=== PATIENT | female | born 1980 | race American Indian/Alaskan Native ===

== ENCOUNTER 2017-03-27 14:56 | Outpatient (CLI) | payer BC, OTHER | END 2017-03-27 14:57 | disposition home or self-care (01) | LOC: LABHHL 14:56 | PROVIDERS: ATTEND Surgery | DX: C50.911 Malignant neoplasm of unspecified site of right female breast (principal) | CPT/HCPCS: 88305; 88361 ==

== ENCOUNTER 2017-04-03 15:12 | Outpatient (CLI) | payer OTHER | END 2017-04-03 15:13 | disposition home or self-care (01) | LOC: LABHHL 15:12 | PROVIDERS: ATTEND Surgery | DX: D05.11 Intraductal carcinoma in situ of right breast (principal) | CPT/HCPCS: 88305; 88341; 88342; 88361 ==

== ENCOUNTER 2017-04-10 14:08 | Outpatient (CLI) | payer BC ==
--- NOTE | 2017-04-16 10:43 | Magnetic Resonance Report ---
BILATERAL BREAST MRI WITHOUT AND WITH CONTRAST: 04/10/17 14:08:00 CLINICAL: Newly diagnosed right breast cancer. 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 A right axillary lymph node biopsy on the same day was negative with no lymphoid tissue identified.. COMPARISON:03/12/17 mammogram from [facility]. TECHNIQUE: Axial 1.0-mm T1 without, axial high resolution 2.0-mm T2 and axial 1.0-mm dynamic Vibrant high-resolution postcontrast T1 fat saturation sequences on a 1.5 Zahida magnet. The examination was performed with an 8 channel dedicated Sentinelle breast coil. Post processing with CAD and subtraction was performed on an [email or web address] workstation. 20 cc of Multihance was injected without incident for the contrast portion of the exam. Consent was obtained prior to the administration of the contrast. FINDINGS: Right: Mild background parenchymal enhancement. The known cancer is an irregular enhancing mass at 12 o'clock 13.3 cm from the nipple and 2.6 cm from the chest wall. It measures 2.8 x 1.9 x 1.7 cm and demonstrates heterogeneous enhancement with mixed kinetics, 205% peak enhancement and 33% type III washout. A second suspicious mass is identified at 11 o'clock 7.8 cm from the nipple and 9.2 cm from the chest wall. It measures 8.9 x 5.6 x 5.0 mm, is oval and smooth and demonstrates heterogeneous enhancement with mixed kinetics, 172% peak enhancement and 43% type III washout. This mass is approximately 2.2 cm cephalad to the stereotactic biopsy clip and is approximately 4 mm lateral to the biopsy clip. The clip is at the inferior aspect of the biopsy cavity and is approximately 2 cm discordant with the original calcifications on the mammogram. No other mass or suspicious enhancement of the right breast. No suspicious right axillary or right internal mammary lymph nodes. Left: Mild background parenchymal enhancement. An oval smooth enhancing mass or lymph node in the upper inner quadrant 9 cm from the nipple measures 1.7 x 1.2 x 1.0 cm. It demonstrates heterogeneous enhancement with mixed kinetics, 111% peak enhancement and 5% type III washout. This is probably a lymph node with mildly hyperintense central fat on T2. However, it is not identified on the recent mammogram. No other mass or suspicious enhancement of the left breast. No suspicious left axillary or left internal mammary lymph nodes. IMPRESSION: 1. A 2.0 cm known right breast cancer. 2. A second 8.9 mm suspicious mass of the right breast is approximately 2 cm cephalad to the discordant stereotactic biopsy clip and this mass is near the original calcifications which were targeted at stereotactic biopsy. 3. A probably benign left upper inner lymph node. A targeted ultrasound of the upper left breast may be conclusive improving and this is a benign lymph node. RIGHT BI-RADS 6 -- Known Cancer LEFT BI-RADS 3 -- Probably Benign
== END 2017-04-10 14:09 | disposition home or self-care (01) ==
LOC: SPVIMAG 14:08
PROVIDERS: ATTEND Surgery
DX: C50.211 Malignant neoplasm of upper-inner quadrant of right female breast (principal)
CPT/HCPCS: 0159T; A9577; C8908; 77059

== ENCOUNTER 2017-05-06 11:06 | Outpatient (CLI) | payer BC ==
--- NOTE | 2017-05-06 12:48 | Ultrasound Report ---
LEFT BREAST ULTRASOUND: 05/06/17 11:06:00 CLINICAL: Known right breast cancer and a questionable lesion of the upper inner left breast on MRI. COMPARISON: 04/10/17 MRI FINDINGS: Ultrasound of the upper inner left breast was performed and demonstrated no lymph node or mass to correlate with MRI finding. I scanned the patient myself and initially thought that I had found a mass at 10 o'clock 7 cm from the nipple measuring approximately 1.2 x 0.9 x 0.5 cm. However, with further scanning it appeared indistinguishable from benign lobular fat. IMPRESSION: Negative left breast ultrasound. BI-RADS 6--Known Cancer RECOMMENDATION: I would normally recommend an MRI guided biopsy for the MRI finding. However, the patient has decided to have a bilateral mastectomy and therefore no biopsy of the left breast is recommended.
== END 2017-05-06 11:07 | disposition home or self-care (01) ==
LOC: SPVWC 11:06
PROVIDERS: ATTEND Surgery
DX: C50.211 Malignant neoplasm of upper-inner quadrant of right female breast (principal)

== ENCOUNTER 2017-08-21 08:44 | Inpatient (IN) | payer BC ==
--- NOTE | 2017-08-15 13:55 | Anesthesia Consultation ---
Anesthesia Consult and Med Hx Date of service: 08/15/17 - Airway Anesthetic Teeth Evaluation: Good ROM Head & Neck: Adequate Mental/Hyoid Distance: Adequate Mallampati Class: Class II Intubation Access Assessment: Probably Good - Pulmonary Exam CTA: Yes - Cardiac Exam Cardiac Exam: RRR - Pre-Operative Health Status ASA Pre-Surgery Classification: ASA2 Proposed Anesthetic Plan: General, Epidural - Cardiovascular System Hx Hypertension: No - Central Nervous System Hx Psychiatric Problems: No - Hematic Hx Anemia: Yes - Other Systems Hx Alcohol Use: Yes (occas) Hx Substance Use: No Hx Cancer: Yes (breast) - Additional Comments Anesthesia Medical History Comments: Patient getting bilateral mastectomy with TRAM flap, umbilical hernia repair. Discussed with patient thoracic epidural for post op pain managment.
[~2017-08-21 08:44] MED LIST: NACL 0.9% 1000 ML 1,000 ML IV SCH; NEURONTIN PO NR; PEPCID PO NR; TRANSDERM-SCOP TD NR; VERSED IV NR
[2017-08-21] MEDS ORDERED: MARCAINE 0.25% INFILTRATI ONE (10:07)
[2017-08-21] MEDS ORDERED: XYLOCAINE 1% 20 mL ONE (10:07)
[2017-08-21] MEDS ORDERED: ANCEF ONE ×2 (10:08→14:49)
[2017-08-21] MEDS ORDERED: MARCAINE 0.5% 30 ML INFILTRATI ONE (10:09)
[2017-08-21] MEDS ORDERED: BACITRACIN ONE (10:09)
[2017-08-21] MEDS ORDERED: NACL P/F VIAL (10 ML) 10 ML ONE ×2 (10:10→11:26)
[2017-08-21] MEDS ORDERED: XYLOCAINE MPF 2% ONE ×3 (10:17→14:46)
[2017-08-21] MEDS ORDERED: ZEMURON IV ONE ×2 (10:17→17:01)
[2017-08-21] MEDS ORDERED: DIPRIVAN 10 MG/ML IV ONE (10:18)
[2017-08-21] MEDS ORDERED: DILAUDID ONE (10:18)
[2017-08-21 10:19] LABS: BUN/Creatinine Ratio 25; Blood Urea Nitrogen 15 mg/dL (7-17); Calcium 8.8 mg/dL (8.4-10.2); Hemolysis Index 20
--- NOTE | 2017-08-21 10:39 | Anesthesia Day of Surgery ---
Anesthesia Day of Surgery - Day of Surgery Patient Examined: Yes Patient is NPO: Yes
[2017-08-21] MEDS ORDERED: NARCAN 0.4 MG/1 ML IV PRN (10:40)
[2017-08-21] MEDS ORDERED: SODIUM CHLORIDE FLUSH SYRINGE 10 ML IV PRN (10:40)
[2017-08-21] MEDS ORDERED: ANCEF/STERILE WATER 2 GM/20 ML IV NR (11:00)
[2017-08-21] MEDS ORDERED: NEO SYNEPHRINE/NS Syringe(OR USE) IV ONE ×2 (11:15→11:49)
[2017-08-21] MEDS ORDERED: NACL 0.9% 1000 ML 1,000 ML ONE ×2 (11:16→15:03)
[2017-08-21] MEDS ORDERED: METHYLENE BLUE ONE (11:26)
--- NOTE | 2017-08-21 14:19 | Operative Report ---
Operative Report Operative Report: Date of Service: August 21, 2017 Preoperative diagnosis: Right breast cancer of the upper outer quadrant Postoperative diagnosis: Same Procedure: Left total mastectomy and right total mastectomy with sentinel lymph node biopsy Surgeon: Ruthann Diehl M.D. Asst.: Katerine Corona MD Anesthesia: Gen. Findings: Two right breast clips present within right total mastectomy radiograph specimen. 5 sentinel lymph nodes identified and negative for malignancy on frozen section of pathology Complications: None Drains: per PRS Estimated blood loss: Minimal Disposition: OR for TRAM flap by Dr. Wilson Indications for operative procedure: This is a 37-year-old lady with multicentric stage I right breast cancer of the upper outer quadrant. She completed neoadjuvant chemotherapy. Recommendations were to proceed with right breast mastectomy given multicentric right breast cancer and she wished to proceed with a prophylactic left total masectomy with immediate TRAM flap reconstruction. Procedure in detail: Anesthesia placed a bilateral pectoral muscle block prior to going to the operating room. The patient was taken to the operating room and was placed supine. Gen. anesthesia was administered. The right nipple was injected with radioisotope and 1 cc of methylene blue dye with 1 cc of saline. Bilateral breast were prepped and draped in the normal sterile operative fashion. Timeout was performed. Typical mastectomy incision markings were made. Attention was taken towards the left breast first. A skin incision was made with a 10 blade knife and dissection taken down to the subcutaneous tissues. First began raising of the superior flap to the level of the clavicle superiorly and posteriorly to the pectoralis muscle. Followed by raising of the medial flap to the level of the sternum and posteriorly to the pectoralis muscle. Followed by raising of the lateral flap to the level of the latissimus dorsi muscle and taken down posteriorly. Followed by raising of the inferior flap to the level of the inframammary fold taken posterior to the pectoralis muscle. The mastectomy/breast was removed from the pectoralis muscle without incident. The specimen was appropriately marked and sent to pathology. Hemostasis was obtained with the bovie cautery. Attention was taken towards the right breast. A gamma probe was inserted into the axilla to identify the sentinel lymph node location. A skin incision was made with a 10 blade knife and dissection taken down to the subcutaneous tissues. First began raising of the superior flap to the level of the clavicle superiorly and posteriorly to the pectoralis muscle. Followed by raising of the medial flap to the level of the sternum and posteriorly to the pectoralis muscle. Followed by raising of the lateral flap to the level of the latissimus dorsi muscle and taken down posteriorly. The gamma probe was inserted into the axilla and 5 sentinel lymph nodes were identified, all remaining counts were less than 10% of the highest SLN. Lymph nodes were sent to pathology with findings negative for malignancy noted on frozen section. Then proceeded with raising of the inferior flap to the level of the inframammary fold taken posterior to the pectoralis muscle. The mastectomy/breast was removed from the pectoralis muscle without incident. The specimen was appropriately marked and sent to radiology with findings of 2 breast clips present and sent to pathology. Hemostasis was obtained with the bovie cautery. Dr. Wilson then proceeded with bilateral TRAM.
--- NOTE | 2017-08-21 14:41 | Mammography Report ---
SPECIMEN RADIOGRAPH RIGHT BREAST: 08/21/17 08:44:00 CLINICAL: Mastectomy specimen. FINDINGS: 2 biopsy clips are identified within the specimen. For more detail, please refer to the operative report.
[2017-08-21] MEDS ORDERED: ZOFRAN ONE ×2 (14:56→18:19)
[2017-08-21] MEDS ORDERED: LACTATED RINGERS 1,000 ML ONE (17:01)
[2017-08-21] MEDS ORDERED: NEOSTIGMINE ONE (18:26)
[2017-08-21] MEDS ORDERED: ROBINUL ONE (18:26)
[2017-08-21] MEDS ORDERED: ePHEDrine SULFATE ONE (19:26)
[2017-08-21] MEDS: MORPHINE IV PRN ×3 (19:59→20:59)
--- NOTE | 2017-08-21 20:27 | Post Anesthesia Evaluation ---
- Post Anesthesia Evaluation Patient Participated: Yes Airway Patent: Yes Stable Respiratory Function: Yes Temp > 96.8F: Yes Pain Manageable: Yes Adequeate Hydration: Yes Other Comments: See progress note
--- NOTE | 2017-08-21 20:34 | Progress Note ---
Subjective Date of service: 08/21/17 Interval history: Patient underwent a very lengthy bilateral mastectomy with tram flap reconstruction. On arrival in PACU she had minemal pain at the surgical site but was complaining of right elbow pain. Upon examination, no ecchymosis, swelling or numbness was noted. The patient was able to flex and extend the left arm at the elbow but said it was very painful to do so. Home Based Assistant strength was essentially the same bilaterally. Will observe patient overnight and re- evaluate in am. Objective - Constitutional Vitals: Vital Signs - 12hr 08/21/17 08/21/17 08/21/17 09:30 09:49 09:53 Temperature 98.5 F Pulse Rate 101 H 112 H Respiratory 14 15 14 Rate Blood Pressure 120/65 115/55 O2 Sat by Pulse 100 100 Oximetry 08/21/17 08/21/17 08/21/17 09:58 10:00 10:03 Temperature 98.5 F Pulse Rate 109 H 98 H 100 H Respiratory 14 14 14 Rate Blood Pressure 112/55 116/67 113/51 O2 Sat by Pulse 100 100 100 Oximetry 08/21/17 08/21/17 08/21/17 10:07 10:12 10:18 Temperature Pulse Rate 108 H 108 H 112 H Respiratory 17 16 17 Rate Blood Pressure 116/51 121/59 116/47 O2 Sat by Pulse 100 100 100 Oximetry 08/21/17 08/21/17 19:59 20:15 Temperature Pulse Rate Respiratory 12 14 Rate Blood Pressure O2 Sat by Pulse Oximetry - Labs CBC & Chem 7: 08/21/17 09:30 Labs: Abnormal lab results 08/21/17 Range/Units 09:30 Creatinine 0.6 L (0.7-1.2) mg/dL
[2017-08-21] MEDS: fentaNYL-BUPIV 2 MCG/ML-0.125% 200 MCG/100 ML BAG EPIDURAL SCH (20:35)
--- NOTE | 2017-08-21 22:58 | Operative Report ---
PREOPERATIVE DIAGNOSES: 1. Breast cancer. 2. Status post bilateral mastectomies. 3. Acquired absence of breast. POSTOPERATIVE DIAGNOSES: 1. Breast cancer. 2. Status post bilateral mastectomies. 3. Acquired absence of breast. 4. Umbilical hernia. PROCEDURES: 1. Bilateral TRAM flap breast reconstruction. 2. Embolectomy. 3. Umbilical hernia repair. SURGEON: Connor Wilson MD SIDE SHOW ENTERTAINER: Alex Hall CSA. FINDINGS: The patient had an umbilical hernia. DESCRIPTION OF PROCEDURE: The patient was brought to the operating room and placed on the table in supine position. Following administration of general anesthesia, bilateral breasts and abdomen were prepped with Betadine solution and draped in the usual sterile manner. Following bilateral mastectomies by Dr. Diehl, attention was directed towards the abdomen for bilateral breast reconstruction. A transverse skin incision was made couple of fingerbreadths above the umbilicus from anterior axillary line to the anterior axillary line with the subcutaneous plane elevation of the abdominal skin flap up to the costal margins and xiphoid process superiorly. A tunnel was created using the electrocautery to communicate with bilateral mastectomy defects. After ensuring closure of the abdominal wall flap, a lower Pfannenstiel incision was performed, which adjoined the transverse skin incision. TRAM flaps bilaterally were elevated in standard manner preserving both medial and lateral rows of the perforators, each flap was dissected out of its rectus sheath, preserving a strip of fascia overlying the superior epigastric vessels, which were identified by Doppler. The inferior epigastric blood vessels were clipped twice distally and twice proximally prior to their division. Ipsilateral flaps were raised in standard manner and placed into the mastectomy defects. Portion of the flap to be buried were deepithelialized. Two 2 mm NOE drains were placed in each breast and skin closure performed with interrupted and running subcuticular 2-0 Monocryl sutures. The abdominal wall defect was closed with a bilateral running loop #1 PDS horizontal mattress sutures oversewn with a #1 Prolene sutures. During the dissection, it was identified that the patient had an umbilical hernia and due to devascularization, it typically occurs with performing bilateral TRAM flaps and then nail with repairing the umbilical hernia, it was felt that the umbilicus could be crossed so, it was removed. The umbilical hernia was closed with a [id number] #1 Prolene suture. Three 10 mm NOE drains were placed. New site was made for the umbilicus with the de-fatting at the area of skin, which was tacked down to the fascia with a #1 Prolene suture. The patient tolerated the procedure well and returned to recovery room in stable condition. The flaps were warm, pink, and had three-second capillary refill. JOB# [id number] FTW/NTS
[2017-08-22] MEDS: CLEOCIN 600 MG/50 mL 600 MG/50 ML BAG IV SCH ×4 (00:24→21:33)
[2017-08-22] MEDS: D5LR 1,000 ML IV SCH ×3 (04:15→21:24)
[2017-08-22 06:17] LABS: Hemoglobin 8.1 gm/dl (10.1-14.3); Mean Corpuscular HGB Conc 33 % (30-34); Mean Corpuscular Hemoglobin 30 pg (28-32); Mean Corpuscular Volume 92 fl (79-97); Platelet Count 260 K/mm3 (140-440); Red Blood Count 2.71 M/mm3 (3.65-5.03)
[2017-08-22 06:20] LABS: Red Cell Distribution Width 26.7 % (13.2-15.2)
[2017-08-22 06:36] LABS: BUN/Creatinine Ratio 19; Blood Urea Nitrogen 15 mg/dL (7-17); Calcium 7.8 mg/dL (8.4-10.2); Hemolysis Index 118
[2017-08-22 07:17] LABS: Basophils % (Manual) 0 % (0.0-1.8); Eosinophils % (Manual) 0 % (0.0-4.3); Total Cells Counted 100
[2017-08-22 07:18] LABS: Anisocytosis 3+; Dimorphic RBC Yes; Hypochromasia 1+; Platelet Estimate Consistent w Auto; Schistocytes Rare
--- NOTE | 2017-08-22 09:23 | Progress Note ---
Assessment and Plan This is a 37 year old lady with multicentric right breast cancer of the upper outer quadrant, POD #1 bilateral mastectomy and right SLNB and TRAM flap. 1. No acute events overnight. 2. Pain in good control. 3. Bilateral chest TRAM flaps with skin well perfused. 4. OOB to hallway. 5. CLD. Subjective Date of service: 08/22/17 Principal diagnosis: Multicentric right breast cancer of the upper outer quadrant Interval history: POD#1 bilateral mastectomy and right SLNB and immediate TRAM flap Objective - Constitutional Vitals: Vital Signs - 12hr 08/21/17 08/21/17 08/21/17 21:29 21:30 22:00 Temperature 97.6 F 97.9 F Pulse Rate 91 H 110 H Respiratory 16 17 14 Rate Blood Pressure 122/68 114/51 Blood Pressure 114/51 [Left] O2 Sat by Pulse 100 100 Oximetry 08/22/17 08/22/17 00:20 04:00 Temperature 99.3 F 99.8 F H Pulse Rate 120 H 119 H Respiratory 18 18 Rate Blood Pressure Blood Pressure 107/47 92/41 [Left] O2 Sat by Pulse 120 H 97 Oximetry General appearance: Present: no acute distress - EENT Eyes: PERRL, EOM intact ENT: hearing intact, clear oral mucosa, dentition normal Ears: bilateral: normal - Neck Neck: supple, normal ROM - Respiratory Respiratory effort: normal Respiratory: bilateral: CTA - Breasts Breasts: other - Cardiovascular Rhythm: regular Heart Sounds: Present: S1 & S2 Extremities: no ischemia, pulses intact, pulses symmetrical, No edema, normal temperature, normal color, Full ROM - Gastrointestinal General gastrointestinal: Present: soft, other (bandages intact, appropriate tenderness) - Genitourinary Female genitourinary: other (richards in place) - Integumentary Integumentary: clear, warm, dry - Musculoskeletal Musculoskeletal: strength equal bilaterally - Neurologic Neurologic: CNII-XII intact - Psychiatric Psychiatric: appropriate mood/affect, intact judgment & insight, memory intact, cooperative - Labs CBC & Chem 7: 08/22/17 05:54 08/22/17 05:54 Labs: Abnormal lab results 08/21/17 08/22/17 08/22/17 Range/Units 09:30 05:54 05:54 WBC 11.3 H (4.5-11.0) K/mm3 RBC 2.71 L (3.65-5.03) M/mm3 Hgb 8.1 L (10.1-14.3) gm/dl Hct 25.0 L (30.3-42.9) % RDW 26.7 H (13.2-15.2) % Seg Neuts % (Manual) 80.0 H (40.0-70.0) % Lymphocytes % (Manual) 10.0 L (13.4-35.0) % Monocytes % (Manual) 10.0 H (0.0-7.3) % Seg Neutrophils # Man 9.0 H (1.8-7.7) K/mm3 Lymphocytes # (Manual) 1.1 L (1.2-5.4) K/mm3 Monocytes # (Manual) 1.1 H (0.0-0.8) K/mm3 Creatinine 0.6 L (0.7-1.2) mg/dL Glucose 131 H (65-100) mg/dL Calcium 7.8 L (8.4-10.2) mg/dL
[2017-08-22] MEDS: fentaNYL-BUPIV 2 MCG/ML-0.125% 200 MCG/100 ML BAG EPIDURAL SCH (11:52)
--- NOTE | 2017-08-22 13:39 | Progress Note ---
Subjective Date of service: 08/22/17 Principal diagnosis: Multicentric right breast cancer of the upper outer quadrant Interval history: Patient is awake and alert. She rates her pain as 5/10. Still with some R elbow pain but much improved from yesterday. Objective - Constitutional Vitals: Vital Signs - 12hr 08/22/17 08/22/17 08/22/17 04:00 08:00 08:43 Temperature 99.8 F H 102.1 F H Pulse Rate 119 H 114 H Respiratory 18 20 20 Rate Blood Pressure 92/41 89/34 [Left] O2 Sat by Pulse 97 Oximetry - Labs CBC & Chem 7: 08/22/17 05:54 08/22/17 05:54 Labs: Abnormal lab results 08/22/17 08/22/17 Range/Units 05:54 05:54 WBC 11.3 H (4.5-11.0) K/mm3 RBC 2.71 L (3.65-5.03) M/mm3 Hgb 8.1 L (10.1-14.3) gm/dl Hct 25.0 L (30.3-42.9) % RDW 26.7 H (13.2-15.2) % Seg Neuts % (Manual) 80.0 H (40.0-70.0) % Lymphocytes % (Manual) 10.0 L (13.4-35.0) % Monocytes % (Manual) 10.0 H (0.0-7.3) % Seg Neutrophils # Man 9.0 H (1.8-7.7) K/mm3 Lymphocytes # (Manual) 1.1 L (1.2-5.4) K/mm3 Monocytes # (Manual) 1.1 H (0.0-0.8) K/mm3 Glucose 131 H (65-100) mg/dL Calcium 7.8 L (8.4-10.2) mg/dL
[2017-08-22] MEDS: MORPHINE IV PRN ×2 (14:30→20:28)
[2017-08-22] MEDS ORDERED: SUBLIMAZE IV ONE (19:00)
[2017-08-22 19:42] LABS: Hematocrit 24.3 % (30.3-42.9); Hemoglobin 8.1 gm/dl (10.1-14.3); Mean Corpuscular HGB Conc 33 % (30-34); Mean Corpuscular Hemoglobin 30 pg (28-32); Mean Corpuscular Volume 90 fl (79-97); Platelet Count 241 K/mm3 (140-440); Red Blood Count 2.71 M/mm3 (3.65-5.03)
[2017-08-22 19:44] LABS: Red Cell Distribution Width 25.7 % (13.2-15.2)
[2017-08-22 20:14] LABS: Basophils % (Manual) 0 % (0.0-1.8); Eosinophils % (Manual) 0 % (0.0-4.3); Total Cells Counted 100
[2017-08-22 20:15] LABS: Anisocytosis 2+
[2017-08-22 20:16] LABS: Schistocytes Rare; Tear Drop Cells Few
[2017-08-22] MEDS: PERCOCET 5/325 PO PRN (20:28)
[2017-08-22] MEDS ORDERED: NACL 0.9% 1000 ML 1,000 ML IV ONE (21:00)
[2017-08-22 21:23] LABS: BUN/Creatinine Ratio 20; Blood Urea Nitrogen 16 mg/dL (7-17); Calcium 7.8 mg/dL (8.4-10.2); Hemolysis Index 7
--- NOTE | 2017-08-22 23:10 | XRay Report ---
FINAL REPORT PROCEDURE: PA and lateral chest x-ray TECHNIQUE: PA and lateral chest radiographs were obtained. CPT 52302 HISTORY: post surgical tachycardia COMPARISON: No prior studies are available for comparison. FINDINGS: Surgical drains are seen overlying the right and left breast. Gxwjyf-S-Sgeg catheter seen implanted in the left side of the chest. Tip of the catheter projects near the junction of the superior vena cava and right atrium. No evidence of pneumothorax. No infiltrates masses or effusions are identified. Heart size upper normal. IMPRESSION: Heart size upper normal. Surgical drain seen overlying the right and left breast. Aoutbo-M-Duzc catheter in place. No acute abnormalities are identified..
[2017-08-23] MEDS: MORPHINE PCA 30MG/30ML IV SCH ×2 (00:32→11:11)
[2017-08-23] MEDS: D5LR 1,000 ML IV SCH ×2 (00:48→11:16)
[2017-08-23] MEDS: PERCOCET 5/325 PO PRN (03:18)
[2017-08-23] MEDS: CLEOCIN 600 MG/50 mL 600 MG/50 ML BAG IV SCH ×3 (03:21→19:52)
--- NOTE | 2017-08-23 06:41 | Progress Note ---
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 1. No acute events overnight. 2. Transfused 2 units of PRBCs yesterday with h/h 06/22. Improvement in tachycardia, EKG obtained today. Replaced Mg yesterday. 3. Consulted hospitalist given tachycardia will await further direction, Dr. Jordan will order thyroid panel and he reviewed EKG with fairly normal findings and he will talk to cardiology. Patient has recieved TCH/P neoadjuvant chemotherpy. 4. Pain in good control and PULLING UNIT FLOORHAND d/c 5. Bilateral chest TRAM flaps with skin well perfused. Adbomen slightly distended and patient will go light with regular diet. 6. OOB to hallway. SCDs. 7. Possible d/c planning for tomorrow. 8. NOE drain education Subjective Date of service: 08/24/17 Principal diagnosis: Multicentric right breast cancer of the upper outer quadrant Interval history: POD#3 bilateral mastectomy and right SLNB and immediate TRAM flap. Transfused 2 units of PRBCs yesterday, improvement in tachycardia. Objective - Constitutional Vitals: Vital Signs - 12hr 08/23/17 01:26 Temperature 100.1 F H Pulse Rate 119 H Respiratory 20 Rate Blood Pressure 99/44 O2 Sat by Pulse 93 Oximetry General appearance: Present: no acute distress - EENT Eyes: PERRL, EOM intact ENT: hearing intact, clear oral mucosa, dentition normal Ears: bilateral: normal - Neck Neck: supple, normal ROM - Respiratory Respiratory effort: normal Respiratory: bilateral: CTA - Breasts Breasts: other (bilateral TRAM flaps with skin well perfused; incision c/d/i) - Cardiovascular Rhythm: regular Extremities: no ischemia, pulses intact, pulses symmetrical, normal temperature , normal color Extremity abnormal: edema - Gastrointestinal General gastrointestinal: Present: soft, distended, other (incisions healing well-c/d/i; minimal tenderness) Rectal Exam: deferred - Genitourinary Female genitourinary: deferred - Integumentary Integumentary: clear, warm, dry - Musculoskeletal Musculoskeletal: strength equal bilaterally - Neurologic Neurologic: CNII-XII intact, moves all extremities - Psychiatric Psychiatric: appropriate mood/affect, intact judgment & insight, memory intact, cooperative - Labs CBC & Chem 7: 08/24/17 07:22 12/29/17 19:24 Labs: Abnormal lab results 08/22/17 08/22/17 08/22/17 Range/Units 05:54 19:24 19:24 WBC 13.8 H (4.5-11.0) K/mm3 RBC 2.71 L (3.65-5.03) M/mm3 Hgb 8.1 L (10.1-14.3) gm/dl Hct 24.3 L (30.3-42.9) % RDW 25.7 H (13.2-15.2) % Seg Neuts % (Manual) 80.0 H 84.0 H (40.0-70.0) % Lymphocytes % (Manual) 10.0 L 12.0 L (13.4-35.0) % Monocytes % (Manual) 10.0 H (0.0-7.3) % Seg Neutrophils # Man 9.0 H 11.6 H (1.8-7.7) K/mm3 Lymphocytes # (Manual) 1.1 L (1.2-5.4) K/mm3 Monocytes # (Manual) 1.1 H (0.0-0.8) K/mm3 Carbon Dioxide (22-30) mmol/L Glucose (65-100) mg/dL Calcium (8.4-10.2) mg/dL Magnesium 1.50 L (1.7-2.3) mg/dL 08/22/17 Range/Units 19:24 WBC (4.5-11.0) K/mm3 RBC (3.65-5.03) M/mm3 Hgb (10.1-14.3) gm/dl Hct (30.3-42.9) % RDW (13.2-15.2) % Seg Neuts % (Manual) (40.0-70.0) % Lymphocytes % (Manual) (13.4-35.0) % Monocytes % (Manual) (0.0-7.3) % Seg Neutrophils # Man (1.8-7.7) K/mm3 Lymphocytes # (Manual) (1.2-5.4) K/mm3 Monocytes # (Manual) (0.0-0.8) K/mm3 Carbon Dioxide 21 L (22-30) mmol/L Glucose 124 H (65-100) mg/dL Calcium 7.8 L (8.4-10.2) mg/dL Magnesium (1.7-2.3) mg/dL
[2017-08-23 08:14] LABS: Hematocrit 22.6 % (30.3-42.9); Hemoglobin 7.2 gm/dl (10.1-14.3); Mean Corpuscular HGB Conc 32 % (30-34); Mean Corpuscular Hemoglobin 29 pg (28-32); Mean Corpuscular Volume 91 fl (79-97); Platelet Count 218 K/mm3 (140-440); Red Blood Count 2.48 M/mm3 (3.65-5.03)
[2017-08-23 08:20] LABS: Red Cell Distribution Width 25.5 % (13.2-15.2)
[2017-08-23] MEDS: FLEXERIL PO SCH ×3 (09:00→22:31)
[2017-08-23] MEDS ORDERED: NACL 0.9% 500 ML 500 ML IV ONE (09:04)
--- NOTE | 2017-08-23 09:29 | Progress Note ---
Subjective Date of service: 08/23/17 Patient Reports: Positive: still having pain, tolerating liquids well, flatus Narrative: Patient ambulated twice yesterday but none today. 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 Epidural catheter stopped working yesterday. CXR=WNL;UOP=Good; O2 sat=98%;WBC=11, HCT=21, Chem-7= WNL; Mg=1.6(Low); I&O Balance= +2L Afebrile Tmax 101 HR119 BP 99/44 RR 20 Heart-RRR Lungs-CTAB; shallow BS at bases. Breasts: TRAM Flaps warm & pink w 3sec. Cap refill Abd-soft, non-distended, TTP;NOE Drainage (serous) Ext-No significant edema/No calf TTP Assessment: Doing well s/p Dixon.MRM and TRAM Flap Breast Reconstruction Tachycardia probably secondary to Anemia & Pain Plan: Transfuse 2U PRBC's Ambulate in Hallway 6X/Day Advance diet Objective Vital Signs - 12hr 08/23/17 01:26 Temperature 100.1 F H Pulse Rate 119 H Respiratory 20 Rate Blood Pressure 99/44 O2 Sat by Pulse 93 Oximetry - Labs 08/23/17 07:47 08/22/17 19:24 Diabetes panel 08/22/17 Range/Units 19:24 Sodium 138 (137-145) mmol/L Potassium 4.4 (3.6-5.0) mmol/L Chloride 102.7 (98-107) mmol/L Carbon Dioxide 21 L (22-30) mmol/L BUN 16 (7-17) mg/dL Creatinine 0.8 (0.7-1.2) mg/dL Glucose 124 H (65-100) mg/dL Calcium 7.8 L (8.4-10.2) mg/dL Calcium panel 08/22/17 Range/Units 19:24 Calcium 7.8 L (8.4-10.2) mg/dL Pituitary panel 08/22/17 Range/Units 19:24 Sodium 138 (137-145) mmol/L Potassium 4.4 (3.6-5.0) mmol/L Chloride 102.7 (98-107) mmol/L Carbon Dioxide 21 L (22-30) mmol/L BUN 16 (7-17) mg/dL Creatinine 0.8 (0.7-1.2) mg/dL Glucose 124 H (65-100) mg/dL Calcium 7.8 L (8.4-10.2) mg/dL Adrenal panel 08/22/17 Range/Units 19:24 Sodium 138 (137-145) mmol/L Potassium 4.4 (3.6-5.0) mmol/L Chloride 102.7 (98-107) mmol/L Carbon Dioxide 21 L (22-30) mmol/L BUN 16 (7-17) mg/dL Creatinine 0.8 (0.7-1.2) mg/dL Glucose 124 H (65-100) mg/dL Calcium 7.8 L (8.4-10.2) mg/dL
[2017-08-23 09:50] LABS: Anisocytosis 2+; Basophils % (Manual) 0 % (0.0-1.8); Eosinophils % (Manual) 0 % (0.0-4.3); Total Cells Counted 100
[2017-08-23 09:51] LABS: Acanthocytes 1+; Poikilocytosis 3+; Schistocytes Few
[2017-08-23 09:52] LABS: Ovalocytes Few; Platelet Estimate Cons; Tear Drop Cells 1+
[2017-08-23] MEDS ORDERED: NACL 0.9% 500 ML 500 ML ONE (14:58)
[2017-08-23] MEDS ORDERED: MAGNESIUM SULFATE IV ONE (18:21)
[2017-08-23] MEDS ORDERED: MAGNESIUM SULFATE 1 GM in NACL 0.9% 50 ML IV ONE (19:00)
[2017-08-24] MEDS: PERCOCET 5/325 PO PRN ×2 (03:26→16:00)
[2017-08-24] MEDS: CLEOCIN 600 MG/50 mL 600 MG/50 ML BAG IV SCH ×2 (03:26→09:59)
[2017-08-24] MEDS: MORPHINE PCA 30MG/30ML IV SCH (04:02)
[2017-08-24] MEDS: D5LR 1,000 ML IV SCH (06:20)
[2017-08-24 08:01] LABS: Basophils % (Auto) 0.1 % (0.0-1.8); Eosinophils % (Auto) 0.2 % (0.0-4.3); Hematocrit 29.4 % (30.3-42.9); Lymphocytes # (Auto) 1.5 K/mm3 (1.2-5.4); Lymphocytes % (Auto) 14.3 % (13.4-35.0); Mean Corpuscular HGB Conc 34 % (30-34); Mean Corpuscular Hemoglobin 30 pg (28-32); Mean Corpuscular Volume 89 fl (79-97); Monocytes # (Auto) 1.1 K/mm3 (0.0-0.8); Monocytes % (Auto) 10.3 % (0.0-7.3); Platelet Count 192 K/mm3 (140-440); Red Blood Count 3.33 M/mm3 (3.65-5.03)
[2017-08-24 08:06] LABS: Red Cell Distribution Width 20.9 % (13.2-15.2)
[2017-08-24] MEDS: FLEXERIL PO SCH ×3 (08:29→21:19)
[2017-08-24] MEDS ORDERED: MORPHINE IV PRN (11:21)
--- NOTE | 2017-08-24 11:29 | Progress Note ---
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 1. No acute events overnight. 2. Transfused 2 units of PRBCs yesterday with h/h 06/22. Improvement in tachycardia, EKG obtained today. Replaced Mg yesterday. 3. Consulted hospitalist given tachycardia will await further direction, Dr. Jordan will order thyroid panel and he reviewed EKG with fairly normal findings and he will talk to cardiology. Patient has recieved TCH/P neoadjuvant chemotherpy. 4. 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 Bilateral chest TRAM flaps with skin well perfused. Adbomen slightly distended and patient will go light with regular diet. 6. OOB to hallway. SCDs. 7. Possible d/c planning for tomorrow. 8. NOE drain education Subjective Date of service: 08/24/17 Principal diagnosis: Multicentric right breast cancer of the upper outer quadrant Interval history: POD#3 bilateral mastectomy and right SLNB and immediate TRAM flap. Transfused 2 units of PRBCs yesterday, improvement in tachycardia. Objective - Constitutional Vitals: Vital Signs - 12hr 08/24/17 08/24/17 08/24/17 01:13 02:20 05:57 Temperature 100.3 F H 99.3 F Pulse Rate 116 H 115 H 110 H Respiratory 16 20 Rate Blood Pressure 124/57 108/60 [Left] O2 Sat by Pulse 92 97 Oximetry 08/24/17 08/24/17 08/24/17 06:02 08:00 09:15 Temperature 98.3 F Pulse Rate 74 Respiratory 20 20 20 Rate Blood Pressure 116/64 [Left] O2 Sat by Pulse Oximetry 08/24/17 08/24/17 09:35 11:17 Temperature Pulse Rate Respiratory 20 20 Rate Blood Pressure [Left] O2 Sat by Pulse Oximetry General appearance: Present: no acute distress - EENT Eyes: PERRL, EOM intact ENT: hearing intact, clear oral mucosa, dentition normal Ears: bilateral: normal - Neck Neck: supple, normal ROM - Respiratory Respiratory effort: normal Respiratory: bilateral: CTA - Breasts Breasts: other (bilateral TRAM flaps with skin well perfused; incision c/d/i) - Cardiovascular Rhythm: regular Extremities: no ischemia, pulses intact, pulses symmetrical, normal temperature , normal color, Full ROM Extremity abnormal: edema - Gastrointestinal General gastrointestinal: Present: soft, distended, other (incisions c/d/i) Rectal Exam: deferred - Genitourinary Female genitourinary: deferred - Integumentary Integumentary: clear, warm, dry - Musculoskeletal Musculoskeletal: strength equal bilaterally - Neurologic Neurologic: CNII-XII intact, moves all extremities - Psychiatric Psychiatric: appropriate mood/affect, intact judgment & insight, memory intact, cooperative - Labs CBC & Chem 7: 08/24/17 07:22 08/22/17 19:24 Labs: Abnormal lab results 08/23/17 08/24/17 Range/Units 09:25 07:22 RBC 3.33 L (3.65-5.03) M/mm3 Hgb 10.0 L (10.1-14.3) gm/dl Hct 29.4 L D (30.3-42.9) % RDW 20.9 H (13.2-15.2) % [place] % (Auto) 10.3 H (0.0-7.3) % [place] # 1.1 H (0.0-0.8) K/mm3 Seg Neutrophils % 75.1 H (40.0-70.0) % Crossmatch See Detail
--- NOTE | 2017-08-24 11:34 | Consultation ---
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 The patient is POD # 3 and noted to have persistent tachycardia throughout the hospitalization. The patient acftually reports tachycardia for the past 3 weeks discovered by a follow up vist in her Oncologist's office. She denies CP , SOB or palpitations. Pt. with low grade fever today. EKG completed today reveals sinus tachycardia. Past History Past Medical History: other (breast CA) Past Surgical History: Other (bilateral mastectomy) Social history: no significant social history Family history: no significant family history Medications and Allergies Allergies Allergy/AdvReac Type Severity Reaction Status Date / Time Hamilton Complexes Allergy Anaphylaxis Verified 08/14/17 16:25 prochlorperazine edisylate Allergy Anaphylaxis Verified 08/14/17 16:25 [From Compazine] prochlorperazine maleate Allergy Anaphylaxis Verified 08/14/17 16:25 [From Compazine] tramadol Allergy headache Verified 08/14/17 16:26 and vomiting Home Medications Medication Instructions Recorded Confirmed Last Taken Type Clindamycin [Clindamycin CAP] 300 mg PO Q6H #40 capsule 08/24/17 Unknown Rx Cyclobenzaprine [Flexeril] 10 mg PO TID PRN #20 tablet 08/24/17 Unknown Rx HYDROcodone/APAP 5-325 [[place] 1 each PO Q6HR PRN #30 tablet 08/24/17 Unknown Rx 5/325] Active Meds: Active Medications Cyclobenzaprine HCl (Flexeril) 10 mg PO TID [facility] Last Admin: 08/24/17 08:29 Dose: 10 mg Furosemide (Lasix) 20 mg IV ONCE ONE Stop: 08/24/17 12:01 Clindamycin HCl (Cleocin 600 Mg/50 Ml) 600 mg in 50 mls @ 100 mls/hr IV Q6H HAYLEY PRN Reason: Protocol Last Admin: 08/24/17 09:59 Dose: 100 mls/hr Morphine Sulfate (Morphine) 2 mg IV Q4H PRN PRN Reason: Pain, Moderate (4-6) Naloxone HCl (Narcan 0.4 Mg/1 Ml) 0.2 mg IV Q5M PRN PRN Reason: Res Rate </= 8 or 02 SAT < 92% Oxycodone/Acetaminophen (Percocet 5/325) 1 tab PO Q6H PRN PRN Reason: Pain, Moderate (4-6) Last Admin: 08/23/17 03:18 Dose: 1 tab Oxycodone/Acetaminophen (Percocet 5/325) 2 tab PO Q6H PRN PRN Reason: Pain , Severe (7-10) Last Admin: 08/24/17 03:26 Dose: 2 tab Sodium Chloride (Sodium Chloride Flush Syringe 10 Ml) 10 ml IV PRN PRN PRN Reason: LINE FLUSH Review of Systems All systems: negative Exam - Constitutional Vitals: Temp Pulse Resp BP Pulse Ox 98.3 F 74 20 116/64 97 08/24/17 09:15 08/24/17 09:15 08/24/17 11:17 08/24/17 09:15 08/24/17 02:20 General appearance: Present: no acute distress, well-nourished - EENT Eyes: Present: PERRL ENT: hearing intact, clear oral mucosa - Neck Neck: Present: supple, normal ROM - Respiratory Respiratory effort: normal Respiratory: bilateral: CTA - Cardiovascular Heart Sounds: Present: S1 & S2. Absent: rub, click - Extremities Extremities: pulses symmetrical, No edema Peripheral Pulses: within normal limits - Abdominal General gastrointestinal: Present: soft, non-tender, non-distended, normal bowel sounds Female genitourinary: Present: normal - Integumentary Integumentary: Present: clear, warm, dry - Musculoskeletal Musculoskeletal: gait normal, strength equal bilaterally - Psychiatric Psychiatric: appropriate mood/affect, intact judgment & insight - Neurologic Neurologic: CNII-XII intact, moves all extremities Results - Labs CBC & Chem 7: 08/24/17 07:22 08/22/17 19:24 Labs: Abnormal lab results 08/23/17 08/24/17 Range/Units 09:25 07:22 RBC 3.33 L (3.65-5.03) M/mm3 Hgb 10.0 L (10.1-14.3) gm/dl Hct 29.4 L D (30.3-42.9) % RDW 20.9 H (13.2-15.2) % [place] % (Auto) 10.3 H (0.0-7.3) % [place] # 1.1 H (0.0-0.8) K/mm3 Seg Neutrophils % 75.1 H (40.0-70.0) % Crossmatch See Detail Assessment and Plan Persistent tachycardia. Etiology may be physiologic secondary to fever +/- anemia. s/p 2 units PRBCs. Check Echocardiogram. Check TSH, d-dimer. Cardiology consultaion. Consider CTA chest. Breast CA. s/p bilateral mastectomy and right SLNB and TRAM flap. Acute blood loss anemia. s/p surgery, s/p 2units
[2017-08-24] MEDS ORDERED: LASIX IV ONE (12:00)
[2017-08-24] MEDS: CLEOCIN PO SCH ×2 (17:00→21:20)
[2017-08-25] MEDS: PERCOCET 5/325 PO PRN ×2 (04:50→15:58)
--- NOTE | 2017-08-25 07:26 | Progress Note ---
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 1. No acute events overnight. 2. Transfused 2 units of PRBCs on Friday with h/h 06/22. Improvement in tachycardia. 3. Consulted hospitalist given tachycardia yesterday, Dr. Jordan ordered thyroid panel and he reviewed EKG with fairly normal findings, will follow-up today [facility] additiona recommendations. Patient has recieved TCH/P neoadjuvant chemotherpy-will discuss with Dr. Corona tomorrow. 4. Pain in good control now, patient reports pain not well controlled overnight , IV was d/c, will make adjustments today. 5. Bilateral chest TRAM flaps with skin well perfused. Adbomen distended and patient will go light with regular diet. Will start stool softners, patient with flatus. 6. OOB to hallway. SCDs. 7. Possible d/c planning today. 8. NOE drain education Subjective Date of service: 08/25/17 Principal diagnosis: Multicentric right breast cancer of the upper outer quadrant Interval history: POD#4 bilateral mastectomy and right SLNB and immediate TRAM flap. Transfused 2 units of PRBCs on Friday, improvement in tachycardia. Bilateral lower ext ultrasound yesterday with neg findings for DVT. Objective - Constitutional Vitals: Vital Signs - 12hr 08/24/17 08/25/17 08/25/17 20:10 00:00 04:20 Temperature 99.0 F 98.9 F 98.8 F Pulse Rate 119 H 107 H 114 H Respiratory 20 20 20 Rate Blood Pressure 115/56 102/71 105/52 [Left] General appearance: Present: no acute distress - EENT Eyes: PERRL ENT: hearing intact, clear oral mucosa Ears: bilateral: normal - Neck Neck: supple, normal ROM - Respiratory Respiratory effort: normal Respiratory: bilateral: CTA - Breasts Breasts: other (bilateral TRAM flaps with skin well perfused; incision c/d/i) Extremities: no ischemia, pulses symmetrical, normal temperature, normal color, Full ROM - Gastrointestinal General gastrointestinal: Present: soft, distended, other (incisions healing well, c/d/i) Rectal Exam: deferred - Genitourinary Female genitourinary: deferred - Integumentary Integumentary: clear, warm, dry - Musculoskeletal Musculoskeletal: strength equal bilaterally - Neurologic Neurologic: CNII-XII intact, moves all extremities - Psychiatric Psychiatric: appropriate mood/affect, intact judgment & insight, memory intact, cooperative - Labs CBC & Chem 7: 08/24/17 07:22 08/22/17 19:24 Labs: Abnormal lab results 08/24/17 08/24/17 08/24/17 Range/Units 07:22 13:14 13:14 RBC 3.33 L (3.65-5.03) M/mm3 Hgb 10.0 L (10.1-14.3) gm/dl Hct 29.4 L D (30.3-42.9) % RDW 20.9 H (13.2-15.2) % [place] % (Auto) 10.3 H (0.0-7.3) % [place] # 1.1 H (0.0-0.8) K/mm3 Seg Neutrophils % 75.1 H (40.0-70.0) % D-Dimer 783.86 H (0-234) ng/mlDDU TSH 6.050 H (0.270-4.200) mlU/mL
[2017-08-25] MEDS: FLEXERIL PO SCH ×2 (08:00→14:02)
[2017-08-25] MEDS ORDERED: DULCOLAX PR PRN (08:45)
[2017-08-25] MEDS: TORADOL PO PRN ×2 (09:39→17:38)
[2017-08-25] MEDS: CLEOCIN PO SCH ×3 (09:39→17:38)
[2017-08-25] MEDS ORDERED: COLACE PO SCH (10:00)
[2017-08-25] MEDS ORDERED: NACL ONE ×2 (10:58→12:27)
[2017-08-25 11:06] LABS: BUN/Creatinine Ratio 20; Blood Urea Nitrogen 8 mg/dL (7-17); Calcium 8.3 mg/dL (8.4-10.2); Hemolysis Index 2
[2017-08-25] MEDS ORDERED: MAGNESIUM SULFATE 3 GM in NACL 0.9% 100 ML IV ONE (11:46)
[2017-08-25] MEDS ORDERED: SUBLIMAZE IV ONE (11:50)
--- NOTE | 2017-08-25 13:33 | Cat Scan Report ---
CTA CHEST: HISTORY: Tachycardia. COMPARISON: none. TECHNIQUE: Helical CT in 1.25mm intervals following IV contrast. Pulmonary embolus protocol. Sagittal and coronal reformatted images. Rotational MIP images. FINDINGS: Contrast bolus is satisfactory. No pulmonary embolus is identified. Thyroid gland: Normal. Tracheobronchial tree: Normal. Esophagus: Normal. Heart: Normal. Pericardium: Normal. Mediastinum: Normal. Lung [place]: normal. Pleural Spaces: Small to medium bilateral layering pleural effusions are identified which compress the lower lung zones. No pneumothorax. Musculoskeletal: Normal. IMPRESSION: No evidence for pulmonary embolus. Small to medium bilateral layering pleural effusions of uncertain etiology.
[2017-08-25] MEDS ORDERED: NACL 0.9% 1000 ML 1,000 ML ONE (14:00)
[2017-08-25] MEDS ORDERED: K-DUR PO ONE (15:15)
--- NOTE | 2017-08-25 15:37 | Progress Note ---
History Interval history: No palpitations currently Hospitalist Physical - Constitutional Vitals: Temp Pulse Resp BP Pulse Ox 98.2 F 82 18 117/59 96 08/25/17 12:10 08/25/17 12:10 08/25/17 13:04 08/25/17 12:10 08/24/17 16:00 General appearance: Present: no acute distress Results - Labs CBC & Chem 7: 08/24/17 07:22 08/25/17 10:17 Labs: Laboratory Last Values WBC 10.2 K/mm3 (4.5-11.0) 08/24/17 07:22 RBC 3.33 M/mm3 (3.65-5.03) L 08/24/17 07:22 Hgb 10.0 gm/dl (10.1-14.3) L 08/24/17 07:22 Hct 29.4 % (30.3-42.9) L D 08/24/17 07:22 MCV 89 fl (79-97) 08/24/17 07:22 MCH 30 pg (28-32) 08/24/17 07:22 MCHC 34 % (30-34) 08/24/17 07:22 RDW 20.9 % (13.2-15.2) H 08/24/17 07:22 Plt Count 192 K/mm3 (140-440) 08/24/17 07:22 Lymph % (Auto) 14.3 % (13.4-35.0) 08/24/17 07:22 [place] % (Auto) 10.3 % (0.0-7.3) H 08/24/17 07:22 Eos % (Auto) 0.2 % (0.0-4.3) 08/24/17 07:22 Baso % (Auto) 0.1 % (0.0-1.8) 08/24/17 07:22 Lymph # 1.5 K/mm3 (1.2-5.4) 08/24/17 07:22 [place] # 1.1 K/mm3 (0.0-0.8) H 08/24/17 07:22 Eos # 0.0 K/mm3 (0.0-0.4) 08/24/17 07:22 Baso # 0.0 K/mm3 (0.0-0.1) 08/24/17 07:22 Add Manual Diff Complete 08/23/17 07:47 Total Counted 100 08/23/17 07:47 Seg Neutrophils % 75.1 % (40.0-70.0) H 08/24/17 07:22 Seg Neuts % (Manual) 75.0 % (40.0-70.0) H 08/23/17 07:47 Band Neutrophils % 0 % 08/23/17 07:47 Lymphocytes % (Manual) 15.0 % (13.4-35.0) 08/23/17 07:47 Reactive Lymphs % (Man) 0 % 08/23/17 07:47 Monocytes % (Manual) 10.0 % (0.0-7.3) H 08/23/17 07:47 Eosinophils % (Manual) 0 % (0.0-4.3) 08/23/17 07:47 Basophils % (Manual) 0 % (0.0-1.8) 08/23/17 07:47 Metamyelocytes % 0 % 08/23/17 07:47 Myelocytes % 0 % 08/23/17 07:47 Promyelocytes % 0 % 08/23/17 07:47 Blast Cells % 0 % 08/23/17 07:47 Nucleated RBC % Not Reportable 08/23/17 07:47 Seg Neutrophils # 7.7 K/mm3 (1.8-7.7) 08/24/17 07:22 Seg Neutrophils # Man 8.9 K/mm3 (1.8-7.7) H 08/23/17 07:47 Band Neutrophils # 0.0 K/mm3 08/23/17 07:47 Lymphocytes # (Manual) 1.8 K/mm3 (1.2-5.4) 08/23/17 07:47 Abs React Lymphs (Man) 0.0 K/mm3 08/23/17 07:47 Monocytes # (Manual) 1.2 K/mm3 (0.0-0.8) H 08/23/17 07:47 Eosinophils # (Manual) 0.0 K/mm3 (0.0-0.4) 08/23/17 07:47 Basophils # (Manual) 0.0 K/mm3 (0.0-0.1) 08/23/17 07:47 Metamyelocytes # 0.0 K/mm3 08/23/17 07:47 Myelocytes # 0.0 K/mm3 08/23/17 07:47 Promyelocytes # 0.0 K/mm3 08/23/17 07:47 Blast Cells # 0.0 K/mm3 08/23/17 07:47 WBC Morphology Not Reportable 08/23/17 07:47 Hypersegmented Neuts Not Reportable 08/23/17 07:47 Hyposegmented Neuts Not Reportable 08/23/17 07:47 Hypogranular Neuts Not Reportable 08/23/17 07:47 Smudge Cells Not Reportable 08/23/17 07:47 Toxic Granulation Not Reportable 08/23/17 07:47 Toxic Vacuolation Not Reportable 08/23/17 07:47 Dohle Bodies Not Reportable 08/23/17 07:47 Pelger-Huet Anomaly Not Reportable 08/23/17 07:47 Hernandez Rods Not Reportable 08/23/17 07:47 Platelet Estimate Cons 08/23/17 07:47 Clumped Platelets Not Reportable 08/23/17 07:47 Plt Clumps, EDTA Not Reportable 08/23/17 07:47 Large Platelets Not Reportable 08/23/17 07:47 Giant Platelets Not Reportable 08/23/17 07:47 Platelet Satelliting Not Reportable 08/23/17 07:47 Plt Morphology Comment Not Reportable 08/23/17 07:47 RBC Morphology Not Reportable 08/23/17 07:47 Dimorphic RBCs Not Reportable 08/23/17 07:47 Polychromasia Not Reportable 08/23/17 07:47 Hypochromasia Not Reportable 08/23/17 07:47 Poikilocytosis 3+ 08/23/17 07:47 Anisocytosis 2+ 08/23/17 07:47 Microcytosis Not Reportable 08/23/17 07:47 Macrocytosis Not Reportable 08/23/17 07:47 Spherocytes Not Reportable 08/23/17 07:47 Pappenheimer Bodies Not Reportable 08/23/17 07:47 Sickle Cells Not Reportable 08/23/17 07:47 Target Cells Not Reportable 08/23/17 07:47 Tear Drop Cells 1+ 08/23/17 07:47 Ovalocytes Few 08/23/17 07:47 Helmet Cells Not Reportable 08/23/17 07:47 Laguerre-Bena Bodies Not Reportable 08/23/17 07:47 [place] Rings Not Reportable 08/23/17 07:47 Sublette Cells Not Reportable 08/23/17 07:47 Bite Cells Not Reportable 08/23/17 07:47 Crenated Cell Not Reportable 08/23/17 07:47 Elliptocytes Few 08/23/17 07:47 Acanthocytes (Spur) 1+ 08/23/17 07:47 Rouleaux Not Reportable 08/23/17 07:47 Hemoglobin C Crystals Not Reportable 08/23/17 07:47 Schistocytes Few 08/23/17 07:47 Malaria parasites Not Reportable 08/23/17 07:47 Esdras Bodies Not Reportable 08/23/17 07:47 Hem Pathologist Commnt No 08/23/17 07:47 D-Dimer 783.86 ng/mlDDU (0-234) H 08/24/17 13:14 Sodium 141 mmol/L (137-145) 08/25/17 10:17 Potassium 3.4 mmol/L (3.6-5.0) L D 08/25/17 10:17 Chloride 102.4 mmol/L (98-107) 08/25/17 10:17 Carbon Dioxide 24 mmol/L (22-30) 08/25/17 10:17 Anion Gap 18 mmol/L 08/25/17 10:17 BUN 8 mg/dL (7-17) 08/25/17 10:17 Creatinine 0.4 mg/dL (0.7-1.2) L 08/25/17 10:17 Estimated GFR > 60 ml/min 08/25/17 10:17 BUN/Creatinine Ratio 20 % 08/25/17 10:17 Glucose 109 mg/dL (65-100) H 08/25/17 10:17 Calcium 8.3 mg/dL (8.4-10.2) L 08/25/17 10:17 Magnesium 1.50 mg/dL (1.7-2.3) L 08/25/17 10:17 TSH 6.050 mlU/mL (0.270-4.200) H 08/24/17 13:14 Free T4 1.21 ng/dL (0.76-1.46) 08/25/17 10:17 Blood Type O POSITIVE 08/23/17 09:25 Antibody Screen Negative 08/23/17 09:25 Crossmatch See Detail 08/23/17 09:25
[2017-08-25 18:16] VITALS: BP 105/63
--- NOTE | 2017-08-27 09:17 | Discharge Summary ---
Providers - Providers Date of Admission: 08/21/17 21:00 Date of discharge: 08/25/17 Attending physician: BIANCA DIEHL 08/24/17 07:36 Consult to Physician [CONS] Urgent Consulting Provider: BIANCA DIEHL Reason For Exam: tachycardia Place consult to:: hospitalist Notified:: will call 08/24/17 11:42 Consult to Cardiology [CONS] Routine Consulting Provider: ELSA GUAN Reason For Exam: persisitent tachycardia Primary care physician: VENUS GARDUNO Hospitalization Condition: Good Pertinent studies: CTA negative for pulmonary embolism Bilteral lower extremity ultrasound negative for DVT Procedures: Bilateral total mastectomy and right SLNB followed by bilateral TRAM flap Hospital course: This is a 37-year-old lady with 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 On 08/21/2017 she underwent a bilateral mastectomy and right sentinel lymph node biopsy followed by immediate TRAM flap reconstruction surgery. [facility] Postop patient was noted to be tachycardic and initial hemoglobin was 8 and she was transfused 2 units of blood on Friday with appropriate improvement to 06/22. Patient still remained tachycardic with improvement and internal medicine was consulted. EKG was performed as well. Bilateral lower ultrasound was performed with negative findings for DVT and CT chest PE protocol was performed as well with negative findings for pulmonary embolism. Patient continued to improve. Tachycardia improved. Cardiology was consulted as well. She was discharged home on Friday in good condition. She has follow up with Dr. Diehl, Dr. Wilson, cardiology and Dr. Leung. Disposition: TO HOME OR SELFCARE - Discharge Diagnoses (1) Breast cancer Status: Acute Qualifiers: Breast location: upper outer quadrant of breast Estrogen receptor status: positive Patient sex: female Laterality: right Qualified Code(s): C50.411 - Malignant neoplasm of upper-outer quadrant of right female breast; Z17.0 - Estrogen receptor positive status [ER+]; Z17.0 - Estrogen receptor positive status [ER+] (2) Tachycardia Status: Acute (3) Anemia Status: Acute Qualifiers: Anemia type: bone marrow failure Bone marrow failure anemia type: pancytopenia, antineoplastic chemotherapy-induced Qualified Code(s): D61.810 - Antineoplastic chemotherapy induced pancytopenia; T45.1X5A - Adverse effect of antineoplastic and immunosuppressive drugs, initial encounter; T45.1X5A - Adverse effect of antineoplastic and immunosuppressive drugs, initial encounter Core Measure Documentation - Palliative Care Palliative Care/ Comfort Measures: Not Applicable - Core Measures Any of the following diagnoses?: none - VTE Discharge Requirements Deep Vein Thrombosis/Pulmonary Embolism Present on Admission: No Has pt received <5 days of overlap therapy or INR<2.0: No Anticoagulant overlap therapy prescribed at discharge: No Contraindication No Overlap Therapy order at DC: Not Indicated - Acute AR Discharge Requirements Aspirin at discharge: No Reason for no aspirin on DC: Surgical contraindication ALANIS/ARB for LVSD if EF <40%: Not Applicable Beta shaheen at discharge: No Reason for no beta shaheen on DC: Medical contraindication Statin for LDL = or >100 mg/dl on DC: Not Applicable - Heart Failure Discharge Requirements ALANIS/ARB for LVSD if EF <40%: Not Applicable - Stroke Discharge Requirements Statin for LDL = or >70 mg/dl on DC: Not Applicable Exam - Constitutional Vitals: Temp Pulse Resp BP Pulse Ox 98.5 F 75 20 105/63 96 08/25/17 17:20 08/25/17 17:20 08/25/17 17:20 08/25/17 17:20 08/24/17 16:00 General appearance: Present: no acute distress - EENT Eyes: Present: PERRL, EOM intact ENT: hearing intact, clear oral mucosa, dentition normal - Neck Neck: Present: supple, normal ROM - Respiratory Respiratory effort: normal Respiratory: bilateral: CTA - Cardiovascular Rhythm: regular - Extremities Extremities: no ischemia, pulses intact, pulses symmetrical, normal temperature , normal color, Full ROM Extremity abnormal: edema (significant improvement, 1+) Peripheral Pulses: within normal limits - Abdominal General gastrointestinal: Present: soft, non-distended - Rectal Rectal Exam: deferred - Integumentary Integumentary: Present: clear, warm, dry - Musculoskeletal Musculoskeletal: strength equal bilaterally - Psychiatric Psychiatric: appropriate mood/affect, intact judgment & insight, memory intact, cooperative - Neurologic Neurologic: CNII-XII intact, moves all extremities Plan Activity: other (no heavy lifting) Diet: regular Wound: other (per PRS) Follow up with: VENUS GARDUNO MD [Primary Care Provider] - 7 Days Forms: Discharge Signature Page Prescriptions: RX: Clindamycin [Clindamycin CAP] 300 mg PO Q6H #40 capsule Cyclobenzaprine [Flexeril] 10 mg PO TID PRN #20 tablet PRN Reason: Muscle Spasm Docusate Sodium [Colace] 100 mg PO BID PRN #10 capsule PRN Reason: Constipation HYDROcodone/APAP 5-325 [[place] 5/325] 1 each PO Q6HR PRN #30 tablet PRN Reason: Pain Ketorolac [Toradol] 10 mg PO Q6H PRN #12 tablet PRN Reason: Pain
--- NOTE | 2017-08-27 13:55 | Vascular Lab Report ---
LOWER EXTREMITY VENOUS DUPLEX: REASON FOR EXAM: Swelling of the lower extremities. COMMENTS ON THE RIGHT: All veins visualized are freely compressible without evidence of internal echogenicity. Flow is spontaneous and phasic throughout. COMMENTS ON THE LEFT: All veins visualized are freely compressible without evidence of internal echogenicity. Flow is spontaneous and phasic throughout. IMPRESSION: No evidence of acute or chronic deep venous thrombosis in either lower extremity.
== END 2017-08-25 18:33 | disposition home or self-care (01) | DRG 580 ==
LOC: OR 08:44 → OB 21:00
PROVIDERS: ADMIT Surgery; ATTEND Surgery
PROC: 0HTV0ZZ Resection of Bilateral Breast, Open Approach (ICD-10-PCS; principal; 2017-08-21)
PROC: 07B50ZX Excision of Right Axillary Lymphatic, Open Approach, Diagnostic (ICD-10-PCS; 2017-08-21)
PROC: 0WQF0ZZ Repair Abdominal Wall, Open Approach (ICD-10-PCS; 2017-08-21)
PROC: 0HR Skin and Breast, Replacement (ICD-10-PCS; 2017-08-21)
PROC: 0DCW0ZZ Extirpation of Matter from Peritoneum, Open Approach (ICD-10-PCS; 2017-08-21)
PROC: 30233N1 Transfusion of Nonautologous Red Blood Cells into Peripheral Vein, Percutaneous Approach (ICD-10-PCS; 2017-08-23)
DX: C50.411 Malignant neoplasm of upper-outer quadrant of right female breast (principal); D62 Acute posthemorrhagic anemia; K42.9 Umbilical hernia without obstruction or gangrene; R00.0 Tachycardia, unspecified; Z88.8 Allergy status to other drugs, medicaments and biological substances; D64.81 Anemia due to antineoplastic chemotherapy; T45.1X5A Adverse effect of antineoplastic and immunosuppressive drugs, initial encounter
CPT/HCPCS: 36415; 62324; 71020; 71275; 76098; 78800; 80048; 83735; 84439; 84443; 85007; 85025; 85379; 86850; 86900; 86901; 86920; 88307; 88309; 88331; 88333; 88342; 93005; 93010; 93970; A9541; J0690; J1170; J1940; J2250; J2270; J2370; J2405; J2704; J2710; J3010; J3475; J7030; J7040; J7120; J7121; P9016; Q9967; Q9968

== ENCOUNTER 2017-09-18 14:15 | Outpatient (CLI) | payer BC ==
--- NOTE | 2017-09-18 16:59 | Cat Scan Report ---
FINAL REPORT EXAM: CT ABDOMEN PELVIS WO CON HISTORY: RLQ ABDOMINAL TECHNIQUE: CT abdomen and pelvis with oral ancontrast PRIORS: None. FINDINGS: No acute abnormality identified in the lung bases. No focal abnormality identified within the liver parenchyma. The spleen demonstrates normal size and attenuation. No pancreatic abnormalities seen. The kidneys demonstrate symmetric contrast enhancement. Adrenal glands are unremarkable. No evidence of hydronephrosis. Abdominal aorta is normal in caliber. No pathologically enlarged lymph nodes are identified. No signs of free fluid or free air No evidence of small bowel dilatation. The appendix is identified and is normal in size no adjacent inflammatory change seen. There is anterior abdominal wall edematous change in strandy change presumably postoperative in nature superimposed infection cannot be excluded. Urinary bladder is unremarkable. IMPRESSION: Edematous changes within the anterior abdominal likely postoperative in nature No acute findings otherwise identified.
== END 2017-09-18 14:16 | disposition home or self-care (01) ==
LOC: CT 14:15
PROVIDERS: ATTEND Plastic Surgery
DX: Z42.1 Encounter for breast reconstruction following mastectomy (principal); K42.9 Umbilical hernia without obstruction or gangrene; R19.03 Right lower quadrant abdominal swelling, mass and lump; Z85.3 Personal history of malignant neoplasm of breast
CPT/HCPCS: 74176

== ENCOUNTER 2017-10-10 10:13 | Outpatient (CLI) | payer BC ==
--- NOTE | 2017-10-10 13:34 | Mammography Report ---
BONE DEXA:10/10/17 10:13:00 CLINICAL: Long-term use of high-risk medications. TECHNIQUE: Two site bone DEXA performed on an Hologic scanner. FINDINGS: The average BMD of the lumbar spine L1-L4 is 1.055g/cm squared with a T-score of -0.9 and a Z-score of -0.7. The average BMD of the left hip is 1.154g/cm squared with a T-score of +0.8 and a Z-score of +0.9. IMPRESSION: WHO classification: Normal with average fracture risk based on both spine and left hip measurements. RECOMMENDATION: Clinical correlation and routine screening. DEFINITIONS: BMD = Bone Mineral Density T-score = BMD related to mean peak bone mass of young adult (mean expressed in Standard Deviation) Z-score = Age matched BMD expressed in SD World Health Organization (WHO) Diagnostic Criteria Normal T-score > -1 SD Osteopenia T-score between -1 and -2.4 SD Osteoporosis T-score -2.5 SD or below NOTE: BMD is not the only risk factor for fracture. One should also consider factors such as the patient's age, risk of falling, previous osteoporotic fracture, family history of osteoporotic fractures, current smoker, and low body weight. Z-scores are not calculated if >80 years of age.
== END 2017-10-10 10:14 | disposition home or self-care (01) ==
LOC: SPVWC 10:13
PROVIDERS: ATTEND Internal Medicine Hematology & Oncology
DX: Z13.820 Encounter for screening for osteoporosis (principal); C50.411 Malignant neoplasm of upper-outer quadrant of right female breast; Z79.899 Other long term (current) drug therapy
CPT/HCPCS: 77080

== ENCOUNTER 2017-12-01 06:25 | Day surgery (SDC) | payer BC ==
[2017-11-27 10:53] LABS: Hemoglobin 13.5 gm/dl (10.1-14.3)
--- NOTE | 2017-11-27 17:46 | Anesthesia Consultation ---
Anesthesia Consult and Med Hx Date of service: 11/27/17 - Airway Anesthetic Teeth Evaluation: Good ROM Head & Neck: Adequate Mallampati Class: Class II - Pulmonary Exam CTA: Yes - Cardiac Exam Cardiac Exam: RRR - Pre-Operative Health Status ASA Pre-Surgery Classification: ASA3 Proposed Anesthetic Plan: General - Pre-Anesthesia Comment Pre-Anesthesia Comments: patient has a port/undergoing chemo. patient had swollen legs post-op ? etiology responded to lasix - Pulmonary Hx Sleep Apnea: Yes (pt denies) - Cardiovascular System Hx Hypertension: No Hx Coronary Artery Disease: No Hx Heart Attack/AMI: No Hx Angina: No Hx Percutaneous Transluminal Coronary Angioplasty (PTCA): No Hx Cardia Arrhythmia: No Hx Pacemaker: No Hx Internal Defibrillator: No Hx Valvular Heart Disease: No Hx Heart Murmur: No Hx Peripheral Vascular Disease: No - Central Nervous System Hx Psychiatric Problems: No - Endocrine Hx Renal Disease: No Hx End Stage Renal Disease: No Hx Cirrhosis: No Hx Liver Disease: No Hx Insulin Dependent Diabetes: No Hx Non-Insulin Dependent Diabetes: No Hx Thyroid Disease: No Hx Hypothyroidism: No Hx Hyperthyroidism: No - Hematic Hx Anemia: Yes - Other Systems Hx Alcohol Use: Yes (occas) Hx Substance Use: No Hx Cancer: Yes (breast)
[2017-12-01] MEDS ORDERED: ANCEF/STERILE WATER 2 GM/20 ML IV NR (07:15)
[2017-12-01] MEDS ORDERED: NACL 0.9% 1000 ML 1,000 ML IV SCH (07:15)
[2017-12-01] MEDS ORDERED: DIPRIVAN 10 MG/ML IV ONE (07:26)
[2017-12-01] MEDS ORDERED: SUBLIMAZE ONE (07:26)
[2017-12-01] MEDS ORDERED: XYLOCAINE MPF 2% ONE (07:26)
--- NOTE | 2017-12-01 08:21 | Discharge Summary ---
Short Stay Discharge Plan Activity: no restrictions Weight Bearing Status: Full Weight Bearing Diet: regular Wound: remove dressing (5 days and may shower) Follow up with: VENUS GARDUNO MD [Primary Care Provider] - 6 Weeks WORK,SANGITA Obando JR, MD [Staff Physician] - 7 Days
--- NOTE | 2017-12-01 08:23 | Short Stay Summary ---
Short Stay Documentation Date of service: 12/01/17 - Allergies and Medications Current Medications: Allergies [place] Complexes Allergy (Verified 11/26/17 13:55) Anaphylaxis prochlorperazine edisylate [From Compazine] Allergy (Verified 11/26/17 13:55) Anaphylaxis prochlorperazine maleate [From Compazine] Allergy (Verified 11/26/17 13:55) Anaphylaxis tramadol Allergy (Verified 11/26/17 13:55) headache and vomiting Home Medications Medication Instructions Recorded Confirmed Last Taken Type Anastrozole (Nf) [Arimidex (Nf)] 1 mg PO DAILY 11/26/17 12/01/17 11/30/17 History Calcium Carbonate [Calcium] 500 mg PO BID 12/01/17 12/01/17 11/30/17 History Active Medications Cefazolin Sodium (Ancef/Sterile Water 2 Gm/20 Ml) 2 gm IV PREOP NR Stop: 12/01/17 23:59 Sodium Chloride (Nacl 0.9% 1000 Ml) 1,000 mls @ 100 mls/hr IV DIRECT HAYLEY Stop: 12/01/17 23:59 Last Admin: 12/01/17 07:25 Dose: 100 mls/hr - Brief post op/procedure progress note Date of procedure: 12/01/17 Pre-op diagnosis: Dixon. Absence of Nipples/Breast Cancer Hx Post-op diagnosis: same Procedure: Dixon. Nipple Reconstruction Anesthesia: GETA Surgeon: SANGITA MCKEON JR Estimated blood loss: minimal Pathology: none Condition: stable - Disposition Condition at discharge: Good Disposition: DC-01 TO HOME OR SELFCARE Short Stay Discharge Plan Follow up with: VENUS GARDUNO MD [Primary Care Provider] - 6 Weeks SANGITA MCKEON JR, MD [Staff Physician] - 7 Days
[2017-12-01] MEDS ORDERED: ZOFRAN ONE (10:37)
[2017-12-01] MEDS ORDERED: DECADRON ONE (10:37)
[2017-12-01 12:55] VITALS: BP 133/84
--- NOTE | 2018-01-07 13:50 | Operative Report ---
PREOPERATIVE DIAGNOSES: 1.History of breast cancer. 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 POSTOPERATIVE DIAGNOSES: 1.History of breast cancer. 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 PROCEDURE: Bilateral nipple reconstruction. SURGEON: Connor Wilson MD GERIATRIC AIDE: DESCRIPTION OF PROCEDURE: The patient was brought in the operating room, placed on table in supine position. Following administration of general anesthesia, the breast were prepped with Betadine solution and draped in the usual sterile manner. Following preoperative markings for flag shaped flap it was raised in standard manner, folded around upon itself to perform a cylinder, secured in place with interrupted 3-0 Monocryl sutures. Donor site closed with interrupted and running subcuticular 2-0 Monocryl sutures. Sterile noncompressive dressing was applied. The patient tolerated the procedure well and returned to recovery room in stable condition. JOB# [id number] FTW/NTS
== END 2017-12-01 12:06 | disposition home or self-care (01) ==
LOC: OR 06:25
PROVIDERS: ATTEND Plastic Surgery
DX: N64.2 Atrophy of breast (principal); G47.30 Sleep apnea, unspecified; Z85.3 Personal history of malignant neoplasm of breast; Z88.8 Allergy status to other drugs, medicaments and biological substances; Z88.6 Allergy status to analgesic agent
CPT/HCPCS: 19350; 36415; 84703; 85014; 85018; J0690; J1100; J2405; J2704; J3010; J7030

== ENCOUNTER 2017-12-10 07:45 | Outpatient (CLI) | payer BC | END 2017-12-10 07:46 | disposition home or self-care (01) | LOC: ECHO 07:45 | PROVIDERS: ATTEND Internal Medicine Hematology & Oncology | DX: C50.411 Malignant neoplasm of upper-outer quadrant of right female breast (principal); D64.9 Anemia, unspecified; Z79.899 Other long term (current) drug therapy | CPT/HCPCS: 93306 ==

== ENCOUNTER 2018-01-16 13:00 | Emergency (ER) | payer BC ==
[2018-01-16 13:24] VITALS: BP 124/72
[2018-01-16 14:14] LABS: Basophils % (Auto) 0.5 % (0.0-1.8); Eosinophils # (Auto) 0.2 K/mm3 (0.0-0.4); Eosinophils % (Auto) 4.4 % (0.0-4.3); Hematocrit 37.5 % (30.3-42.9); Hemoglobin 12.6 gm/dl (10.1-14.3); Lymphocytes # (Auto) 1.9 K/mm3 (1.2-5.4); Lymphocytes % (Auto) 36.3 % (13.4-35.0); Mean Corpuscular HGB Conc 34 % (30-34); Mean Corpuscular Hemoglobin 28 pg (28-32); Mean Corpuscular Volume 83 fl (79-97); Monocytes # (Auto) 0.4 K/mm3 (0.0-0.8); Monocytes % (Auto) 7.7 % (0.0-7.3); Platelet Count 228 K/mm3 (140-440); Red Blood Count 4.53 M/mm3 (3.65-5.03); Red Cell Distribution Width 16.4 % (13.2-15.2)
[2018-01-16 14:46] LABS: BUN/Creatinine Ratio 28; Blood Urea Nitrogen 14 mg/dL (7-17); Calcium 9.9 mg/dL (8.4-10.2); Hemolysis Index 4
[2018-01-16 17:29] LABS: Bilirubin,Urine NEG (Negative); Blood,Urine LG (Negative); Color,Urine Yellow (Yellow); Mucus,Urine FEW /HPF; Protein,Urine <15 mg/dL mg/dL (Negative); Urobilinogen,Urine < 2.0 mg/dL (<2.0); WBC,Urine < 1.0 /HPF (0.0-6.0)
--- NOTE | 2018-01-16 17:53 | Emergency Department Report ---
Chief Complaint: Vaginal Bleeding Stated Complaint: VAGINAL BLEEDING Time Seen by Provider: 01/16/18 17:36 - HPI History of Present Illness: The patient is a 37-year-old female with a history of breast cancer, currently on chemotherapy, and whom presents for evaluation of abnormal vaginal bleeding. The patient shares that she has not experienced vaginal bleeding for many months, and that vaginal bleeding with chemotherapy use is abnormal. She was informed that she should not have any vaginal bleeding on the chemotherapy, as it is a hormone that causes amenorrhea. Her physician instructed her to presents to the emergency department for evaluation of the vaginal bleeding. - Exam Vital Signs: Vital Signs 01/16/18 13:19 Temperature 98 F Pulse Rate 67 Respiratory 18 Rate Blood Pressure 124/72 O2 Sat by Pulse 100 Oximetry MSE screening note: Focused history and physical exam performed. Due to findings the following was ordered: ED Medical Decision Making - Lab Data Result diagrams: 01/16/18 14:01 01/16/18 14:01 ED Disposition for MSE Condition: Stable Referrals: VENUS GARDUNO MD [Primary Care Provider] - 3-5 Days Forms: AMA Form
== END 2018-01-16 17:50 | disposition left against medical advice (07) ==
LOC: ED 13:00
DX: N93.9 Abnormal uterine and vaginal bleeding, unspecified (principal); Z53.21 Procedure and treatment not carried out due to patient leaving prior to being seen by health care provider
CPT/HCPCS: 36415; 80048; 81001; 84702; 85025; 86850; 86900; 86901

== ENCOUNTER 2018-03-18 06:22 | Observation (INO) | payer BC ==
--- NOTE | 2018-03-16 11:10 | Anesthesia Consultation ---
Anesthesia Consult and Med Hx Date of service: 03/16/18 - Airway Anesthetic Teeth Evaluation: Good ROM Head & Neck: Adequate Mental/Hyoid Distance: Adequate Mallampati Class: Class I Intubation Access Assessment: Good - Pulmonary Exam CTA: Yes - Cardiac Exam Cardiac Exam: RRR - Pre-Operative Health Status ASA Pre-Surgery Classification: ASA2 Proposed Anesthetic Plan: General (denies gerd, TAP block) Nerve Block: TAP block - Cardiovascular System Hx Cardia Arrhythmia: No - Central Nervous System Hx Psychiatric Problems: No - Endocrine Hx Insulin Dependent Diabetes: No Hx Non-Insulin Dependent Diabetes: No Hx Thyroid Disease: No - Hematic Hx Anemia: Yes - Other Systems Hx Alcohol Use: Yes (occas) Hx Substance Use: No Hx Cancer: Yes
[~2018-03-18 06:22] MED LIST changes: +LACTATED RINGERS 1,000 ML IV SCH; -NACL 0.9% 1000 ML 1,000 ML IV SCH; -PEPCID PO NR; -TRANSDERM-SCOP TD NR; -VERSED IV NR
[2018-03-18] MEDS ORDERED: NACL BACTERIOSTATIC INFILTRATI ONE (06:49)
--- NOTE | 2018-03-18 07:01 | Anesthesia Day of Surgery ---
Anesthesia Day of Surgery - Day of Surgery Patient Examined: Yes Patient H&P Reviewed: Yes Patient is NPO: Yes
[2018-03-18] MEDS ORDERED: XYLOCAINE MPF 2% ONE (07:10)
[2018-03-18] MEDS ORDERED: DIPRIVAN 10 MG/ML IV ONE (07:10)
[2018-03-18] MEDS ORDERED: ZEMURON IV ONE (07:10)
[2018-03-18] MEDS ORDERED: VERSED ONE (07:12)
[2018-03-18] MEDS ORDERED: SUBLIMAZE ONE ×2 (07:13→08:46)
[2018-03-18] MEDS ORDERED: MARCAINE 0.25% INFILTRATI ONE (07:14)
[2018-03-18] MEDS ORDERED: ADRENALIN ONE (07:14)
[2018-03-18] MEDS ORDERED: NEOSPORIN GU IR ONE ×2 (07:15→08:00)
[2018-03-18] MEDS ORDERED: ZOFRAN IV PRN (07:30)
[2018-03-18] MEDS ORDERED: DILAUDID IV PRN (07:30)
--- NOTE | 2018-03-18 07:31 | History and Physical Report ---
History of Present Illness Date of examination: 03/18/18 Date of admission: 03/18/2018 Chief complaint: abnormal bleeding History of present illness: 37y/o with a history of breast carcinoma. The patient has been experiencing some abnormal vaginal bleeding. She is currently receiving adjuvant therapy for her breast cancer and has subsequently developed bleeding as a result of use of the medication. The patient has expressed a significant concern for her risks of ovarian cancer in the future. She has elected to undergo a robotic hysterectomy and bilateral salpingo-oophorectomy to decrease her overall carcinoma risk. 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, trichomonas Social history: - Obstetrical History : 2 Para: 2 Hx # Term Pregnancies: 1 Number of Pregnancies: 1 Spontaneous Abortions: 0 Induced : 0 Number of Living Children: 2 Medications and Allergies Allergies Allergy/AdvReac Type Severity Reaction Status Date / Time [place] Complexes Allergy Anaphylaxis Verified 03/11/18 08:49 prochlorperazine edisylate Allergy Anaphylaxis Verified 03/11/18 08:49 [From Compazine] prochlorperazine maleate Allergy Anaphylaxis Verified 03/11/18 08:49 [From Compazine] tramadol Allergy headache Verified 03/11/18 08:49 and vomiting Home Medications Medication Instructions Recorded Confirmed Last Taken Type Anastrozole (Nf) [Arimidex (Nf)] 1 mg PO DAILY 11/26/17 03/11/18 11/30/17 History Calcium Carbonate [Calcium] 500 mg PO BID 12/01/17 03/11/18 11/30/17 History Active Meds: Active Medications Celecoxib (Celebrex) 200 mg PO PREOP NR Stop: 03/18/18 23:59 Last Admin: 03/18/18 07:15 Dose: 200 mg Gabapentin (Neurontin) 300 mg PO PREOP NR Stop: 03/18/18 23:59 Last Admin: 03/18/18 07:16 Dose: 300 mg Hydromorphone HCl (Dilaudid) 0.5 mg IV Q10MIN PRN PRN Reason: Pain , Severe (7-10) Lactated Ringer's (Lactated Ringers) 1,000 mls @ 100 mls/hr IV DIRECT HAYLEY Last Admin: 03/18/18 07:00 Dose: 100 mls/hr Ondansetron HCl (Zofran) 4 mg IV ONCE PRN PRN Reason: Nausea And Vomiting Review of Systems All systems: negative - Vital Signs Vital signs: Vital Signs Temp Pulse Resp BP 98.2 F 60 16 110/68 03/16/18 10:25 03/16/18 10:25 03/16/18 10:25 03/16/18 10:25 Temp Pulse Resp BP Pulse Ox 98.2 F 60 16 110/68 03/16/18 10:25 03/16/18 10:25 03/16/18 10:25 03/16/18 10:25 - Physical Exam Breasts: Positive: deferred Cardiovascular: Regular rate Lungs: Positive: Clear to auscultation Abdomen: Positive: normal appearance Results All other labs normal. Assessment and Plan - Patient Problems (1) Anemia Current Visit: No Status: Acute Qualifiers: Anemia type: bone marrow failure Bone marrow failure anemia type: pancytopenia, antineoplastic chemotherapy-induced Qualified Code(s): D61.810 - Antineoplastic chemotherapy induced pancytopenia; T45.1X5A - Adverse effect of antineoplastic and immunosuppressive drugs, initial encounter; T45.1X5A - Adverse effect of antineoplastic and immunosuppressive drugs, initial encounter Plan to address problem: The patient is scheduled for robotic hysterectomy and bilateral salpingo- oophorectomy (2) Breast cancer Current Visit: No Status: Acute Qualifiers: Breast location: upper outer quadrant of breast Estrogen receptor status: positive Patient sex: female Laterality: right Qualified Code(s): C50.411 - Malignant neoplasm of upper-outer quadrant of right female breast; Z17.0 - Estrogen receptor positive status [ER+]; Z17.0 - Estrogen receptor positive status [ER+]
[2018-03-18] MEDS ORDERED: GELFOAM POWDER 1GM MM ONE ×2 (07:45→08:00)
[2018-03-18] MEDS ORDERED: THROMBIN (BOVINE) TP ONE ×2 (07:46→08:00)
[2018-03-18] MEDS ORDERED: WATER FOR IRRIG STERILE IR ONE (08:00)
[2018-03-18] MEDS ORDERED: NACL 0.9% IR ONE ×2 (08:00)
[2018-03-18] MEDS ORDERED: ANCEF/STERILE WATER 2 GM/20 ML 2 GM/20 ML SYRINGE IV NR (08:00)
[2018-03-18] MEDS ORDERED: ZOFRAN ONE (08:46)
[2018-03-18] MEDS ORDERED: DECADRON ONE (08:46)
[2018-03-18] MEDS ORDERED: ROBINUL ONE (09:11)
[2018-03-18] MEDS ORDERED: BLOXIVERZ ONE (09:11)
[2018-03-18] MEDS ORDERED: NARCAN 0.4 MG/1 ML IV PRN (09:33)
--- NOTE | 2018-03-18 09:33 | Operative Report ---
Operative Report Operative Report: Date of surgery: 03/18/2018 Preoperative diagnoses: Breast carcinoma; abnormal uterine bleeding Postoperative diagnoses: Same as above Procedure: Robotic hysterectomy and bilateral salpingo-oophorectomy Surgeon: Chani Garcia M.D. Dressmaker Garment Fitter: Jennifer Vu Anesthesia: Gen. endotracheal anesthesia Estimated blood loss: 50 mL Pathology: Cervix, uterus, tubes and ovaries Indication: 37-year-old with a history of breast carcinoma. The patient also has a history of abnormal uterine bleeding secondary to her adjuvant cancer therapy. The patient has elected to undergo robotic hysterectomy and bilateral salpingo-oophorectomy to decrease her overall cancer risk. Procedure: The patient was taken to the operating room and given general endotracheal anesthesia without complication. She is prepped and draped in a normal sterile fashion. A bivalve speculum was placed in the patient's vagina and a single- tooth tenaculum placed on the anterior lip of the cervix. The uterus was sounded with the uterine sound. A [employer] uterine manipulator was placed in the bivalve speculum was then removed. Attention was then turned to the patient's abdomen where a 12 millimeter supra umbilical skin incision was then made. A Veress needle was placed and peritoneal entry was verified water-filled syringe. Insufflation of the peritoneal cavity was performed with CO2 gas. The 12 mm trocar was then placed under direct visualization. An additional 8 mm trocar was placed on the patient's left and right lateral side just opposite of the supraumbilical trocar. An additional 5 mm right lateral trocar was then placed as the accessory port. The Carlos Pugh device was used to close the fascia of the 12 mm incision. The patient was then placed in steep Trendelenburg. The da Blanche robot was then engaged. A fenestrated forcep was placed in arm 2 and a vessel sealer was placed in arm 1. The surgeon then transferred to the surgical console. General survey of the abdomen and pelvis revealed findings of a pedunculated leiomyoma from the posterior aspect of the uterus. There were also findings of a left ovarian cyst. The infundibulopelvic ligament was then isolated on the right. The vessel sealer was used to coagulate the ligament which was then transected. The tube and ovary were transected from the supply. The round ligament was then coagulated and transected also. The vesicouterine peritoneum was then entered from the patient's right side. The uterine vessels were then coagulated with the vessel sealer. The vessels were then transected . Attention was then turned to the patient's left side where the infundibulopelvic ligament and mesosalpinx were again isolated coagulated and transected. The vesical peritoneum was then entered from the left and joined in the midline. Peritoneum was reflected off of the lower uterine segment. Uterine vessels were then coagulated and then transected. The blood supply to the uterus was adequately contained, a posterior colpotomy was made. The V care ring was visualized. Posterior colpotomy was created with the monopolar scissors. The incision was continued circumferentially until anterior colpotomy was made. The cervix and uterus were amputated from the vaginal cuff. The uterus was then removed along with the tubes and ovaries bilaterally through the vagina and a warm laparotomy sponge was placed and maintain the pneumoperitoneum. The vaginal cuff was then closed in a running fashion with V lock suture. Irrigation of the pelvis was performed. Gelfoam with thrombin was applied to the incision. The skin was then reapproximated with 4-0 Monocryl. The tissue was sent to pathology which included the cervix, uterus, tubes and ovaries. The patient was then successfully extubated. She was then taken to the recovery room in stable condition. All sponge laps and needle were correct x2.
[2018-03-18] MEDS ORDERED: MORPHINE PCA 30MG/30ML IV SCH (10:00)
--- NOTE | 2018-03-18 10:12 | Post Anesthesia Evaluation ---
- Post Anesthesia Evaluation Patient Participated: Yes Airway Patent: Yes Stable Respiratory Function: Yes Temp > 96.8F: Yes Pain Manageable: Yes Adequeate Hydration: Yes Anesthesia Complications: No Block Receding Appropriately: Not Applicable
[2018-03-18] MEDS ORDERED: PERCOCET 5/325 PO PRN (11:51)
[2018-03-18] MEDS ORDERED: AMBIEN PO PRN (11:51)
[2018-03-18] MEDS ORDERED: MILK OF MAGNESIA PO PRN (11:51)
[2018-03-18] MEDS ORDERED: MOTRIN PO PRN (11:51)
[2018-03-18] MEDS ORDERED: TYLENOL PO PRN (11:51)
[2018-03-18] MEDS: TORADOL IV SCH ×2 (15:30→22:20)
[2018-03-18] MEDS: D5LR 1,000 ML IV SCH (23:22)
[2018-03-19] MEDS: TORADOL IV SCH ×2 (04:05→05:54)
[2018-03-19] MEDS: D5LR 1,000 ML IV SCH (05:26)
--- NOTE | 2018-03-19 08:21 | Progress Note ---
Assessment and Plan - Patient Problems (1) Anemia Current Visit: No Status: Acute Qualifiers: Anemia type: bone marrow failure Bone marrow failure anemia type: pancytopenia, antineoplastic chemotherapy-induced Qualified Code(s): D61.810 - Antineoplastic chemotherapy induced pancytopenia; T45.1X5A - Adverse effect of antineoplastic and immunosuppressive drugs, initial encounter; T45.1X5A - Adverse effect of antineoplastic and immunosuppressive drugs, initial encounter Plan to address problem: Patient is doing well postoperatively Discharge home (2) Breast cancer Current Visit: No Status: Acute Qualifiers: Breast location: upper outer quadrant of breast Estrogen receptor status: positive Patient sex: female Laterality: right Qualified Code(s): C50.411 - Malignant neoplasm of upper-outer quadrant of right female breast; Z17.0 - Estrogen receptor positive status [ER+]; Z17.0 - Estrogen receptor positive status [ER+] Subjective - Subjective Date of service: 03/19/18 Interval history: The patient is without any significant complaints. Her Martinez was removed last night and the patient has been able to void. She tolerated clear diet without complication. Patient reports: appetite normal, voiding normally, pain well controlled Objective - Vital Signs Latest vital signs: Vital Signs Temp Pulse Resp BP BP Pulse Ox 03/19/18 05:25 18 03/19/18 04:20 98.4 F 78 18 128/73 96 03/19/18 03:43 18 03/19/18 01:15 18 03/19/18 00:00 98.2 F 80 18 119/70 98 03/18/18 23:21 18 03/18/18 20:05 97.8 F 80 18 122/66 96 03/18/18 19:09 18 03/18/18 16:00 97.9 F 68 18 119/72 97 03/18/18 12:15 97.6 F 78 18 130/79 100 03/18/18 11:10 97.6 F 86 18 130/71 97 03/18/18 10:30 97.5 F L 80 15 142/82 99 03/18/18 10:28 12 03/18/18 10:15 76 15 132/82 98 03/18/18 10:10 76 13 148/85 98 03/18/18 10:05 75 15 139/81 99 03/18/18 10:00 75 10 L 149/77 100 03/18/18 09:55 81 10 L 140/78 100 03/18/18 09:48 96.9 F L 71 12 148/72 100 Intake and Output 03/18/18 03/19/18 03/19/18 22:59 06:59 14:59 Intake Total 890 758.333 Output Total 1550 300 Balance -660 458.333 Intake: IV 758.333 D5lr 1,000 ml @ 125 mls/ 758.333 hr IV DIRECT HAYLEY Rx#: [id number] Oral 890 Output: Urine 1550 300 Indwelling Catheter 1550 Void 300 Other: Total, Intake Amount 240 Total, Output Amount 800 300 # Voids Void 1 - Exam Abdomen: Present: normal appearance, soft
--- NOTE | 2018-03-19 08:22 | Discharge Summary ---
Providers - Providers Date of Admission: 03/18/18 09:35 Date of discharge: 03/19/18 Attending physician: GUY SPENCER Primary care physician: VENUS GARDUNO Hospitalization Reason for admission: other (history of breast carcinoma and abnormal uterine bleeding) Procedure: other (robotic hysterectomy and bilateral salpingo-oophorectomy) Incision: normal Discharge diagnosis: other (history of breast carcinoma) Hospital course: The patient was admitted the day of surgery and underwent a robotic hysterectomy and bilateral salpingo-oophorectomy. Please see operative note for details of surgery. Postoperative course was uneventful. Condition at discharge: Good Disposition: DC-01 TO HOME OR SELFCARE - Discharge Diagnoses (1) Anemia Status: Acute Qualifiers: Anemia type: bone marrow failure Bone marrow failure anemia type: pancytopenia, antineoplastic chemotherapy-induced Qualified Code(s): D61.810 - Antineoplastic chemotherapy induced pancytopenia; T45.1X5A - Adverse effect of antineoplastic and immunosuppressive drugs, initial encounter; T45.1X5A - Adverse effect of antineoplastic and immunosuppressive drugs, initial encounter (2) Breast cancer Status: Acute Qualifiers: Breast location: upper outer quadrant of breast Estrogen receptor status: positive Patient sex: female Laterality: right Qualified Code(s): C50.411 - Malignant neoplasm of upper-outer quadrant of right female breast; Z17.0 - Estrogen receptor positive status [ER+]; Z17.0 - Estrogen receptor positive status [ER+] Plan - Discharge Medications Prescriptions: Docusate Sodium [Colace] 100 mg PO BID PRN #60 capsule PRN Reason: Constipation Ibuprofen [Motrin] 800 mg PO Q8HR PRN #60 tablet PRN Reason: Pain, Mild (1-3) Oxycodone HCl/Acetaminophen [Percocet 7.5/325 mg] 1 each PO Q6HR PRN #45 tablet PRN Reason: Pain - Provider Discharge Summary Activity: no sex for 6 weeks, no heavy lifting 4 weeks, no strenuous exercise Diet: routine Instructions: routine Additional instructions: [] Smoking cessation referral if applicable(refer to patient education folder for contact #) [] Refer to [facility]'s [facility] Booklet Call your doctor immediately for: * Fever > 100.5 * Heavy vaginal bleeding ( >1 pad per hour) * Severe persistent headache * Shortness of breath * Reddened, hot, painful area to leg or breast * Drainage or odor from incision. * Keep incision clean and dry at all times and follow doctor's instructions regarding bathing/showering Scheduled postoperative visit with Dr. Barakat in 4 weeks - Follow up plan
[2018-03-19] MEDS ORDERED: MYLICON PO PRN (14:15)
[2018-03-19 16:09] VITALS: BP 121/78
== END 2018-03-19 16:42 | disposition home or self-care (01) ==
LOC: OR 06:22 → OB 09:35
PROVIDERS: ADMIT Obstetrics & Gynecology; ATTEND Obstetrics & Gynecology
DX: N93.8 Other specified abnormal uterine and vaginal bleeding (principal); C50.911 Malignant neoplasm of unspecified site of right female breast; D64.9 Anemia, unspecified
CPT/HCPCS: 36415; 58552; 81025; 85014; 85018; 86850; 86900; 86901; 88307; 96374; 96375; A4217; A4649; G0378; J0171; J0690; J1100; J1170; J1885; J2250; J2270; J2405; J2704; J2710; J3010; J7120; J7121

== ENCOUNTER 2018-04-20 09:04 | Outpatient (CLI) | payer BC | END 2018-04-20 09:05 | disposition home or self-care (01) | LOC: CARD 09:04 | PROVIDERS: ATTEND Internal Medicine Hematology & Oncology | DX: C50.411 Malignant neoplasm of upper-outer quadrant of right female breast (principal); M19.90 Unspecified osteoarthritis, unspecified site; Z90.12 Acquired absence of left breast and nipple | CPT/HCPCS: 93306 ==

== ENCOUNTER 2019-03-12 08:25 | Day surgery (SDC) | payer BC, OTHER ==
--- NOTE | 2019-03-12 08:23 | Short Stay Summary ---
Short Stay Documentation Date of service: 03/12/19 - History H&P: obtained from office - Allergies and Medications Current Medications: Allergies carboplatin Allergy (Verified 05/01/18 11:22) Anaphylaxis [place] Complexes Allergy (Verified 03/11/18 08:49) Anaphylaxis prochlorperazine edisylate [From Compazine] Allergy (Verified 03/11/18 08:49) Anaphylaxis prochlorperazine maleate [From Compazine] Allergy (Verified 03/11/18 08:49) Anaphylaxis tramadol Allergy (Verified 03/11/18 08:49) headache and vomiting dernabond Adverse Reaction (Uncoded 05/01/18 11:22) Rash Home Medications Medication Instructions Recorded Confirmed Last Taken Type Anastrozole (Nf) [Arimidex (Nf)] 1 mg PO DAILY 11/26/17 03/08/19 03/18/18 05:30 History Calcium Carbonate [Calcium] 500 mg PO DAILY 12/01/17 03/08/19 03/17/18 History Cholecalciferol (Vitamin D3) 2,000 unit PO QDAY 03/08/19 03/08/19 Unknown History [Vitamin D3 2,000 UNIT CAP] - Brief post op/procedure progress note Date of procedure: 03/12/19 Pre-op diagnosis: Central venous access not indicated Post-op diagnosis: same Procedure: Port removal Anesthesia: local Findings: Port removed in its entirety Surgeon: BIANCA GONZALEZ Fluid Jet Cutter Operator: AMILCAR CAR Estimated blood loss: minimal Pathology: none Condition: stable - Disposition Condition at discharge: Good Disposition: DC-01 TO HOME OR SELFCARE Short Stay Discharge Plan Activity: other (no heavy lifting) Diet: regular Wound: keep clean and dry (may shower in 24 hours) Follow up with: RAHUL AUSTIN MD [Primary Care Provider] - 7 Days BIANCA GONZALEZ MD [Staff Physician] - 7 Days
[~2019-03-12 08:25] MED LIST changes: -LACTATED RINGERS 1,000 ML IV SCH; +MARCAINE 0.25% INFILTRATI ONE; -NEURONTIN PO NR; +XYLOCAINE 1% 20 mL ONE
--- NOTE | 2019-03-12 08:25 | Operative Report ---
Operative Report Operative Report: Date of Service: March 12, 2019 Properative diagnosis: Central venous access not indicated Postoperative diagnosis: Same Procedure: Left port removal Surgeon: Ruthann Diehl MD [employer] Developer: Nichole Young MD Anesthesia: Local Findings: Removal of left port in its entirety Complications: None Drain: None Disposition: PACU in good condition Indications for operative procedure: This is a 38-year-old lady with a personal history of right breast cancer stage II. Patient has completed neoadjuvant ch emotherapy and central venous access no longer indicated. Patient wished to proceed with left port removal. Procedure in detail: Patient was taken to the minor procedure room. She was laid supine. The port was identified of the left chest.The left chest was prepped and draped in the normal sterile operative fashion. The skin was anesthetized with 1% lidocaine mix with quarter percent Marcaine. The prior port incision was opened with a 15 blade knife and taken down to the subcutaneous tissues. The port was encountered. The catheter was encountered and was appropriately dissected free and removed in its entirety. Then proceed with port removal with dissection of scar tissue around the port. The port was removed in its entirety without any complications. Hemostasis was obtained. The subcutanoeus tisses were brought together and closed with interrupted 3-0 Vicryl followed by closing of the skin with a running 4-0 Monocryl. She tolerated the procedure very well and was transferred to PACU in good condition.
[2019-03-12 08:47] VITALS: BP 118/63
[2019-03-12] MEDS ORDERED: MARCAINE 0.25% INFILTRATI ONE (08:52)
[2019-03-12] MEDS ORDERED: XYLOCAINE 1% 20 mL INFILTRATI ONE (08:52)
== END 2019-03-12 09:18 | disposition home or self-care (01) ==
LOC: OR 08:25
PROVIDERS: ATTEND Surgery
DX: T82.898A Other specified complication of vascular prosthetic devices, implants and grafts, initial encounter (principal); D64.9 Anemia, unspecified; G47.30 Sleep apnea, unspecified; M19.90 Unspecified osteoarthritis, unspecified site; Z72.89 Other problems related to lifestyle; Z98.890 Other specified postprocedural states; Z85.3 Personal history of malignant neoplasm of breast; Z79.899 Other long term (current) drug therapy; Z90.13 Acquired absence of bilateral breasts and nipples; Z98.51 Tubal ligation status; Z90.710 Acquired absence of both cervix and uterus; Z98.891 History of uterine scar from previous surgery; Y84.8 Other medical procedures as the cause of abnormal reaction of the patient, or of later complication, without mention of misadventure at the time of the procedure; Y92.89 Other specified places as the place of occurrence of the external cause
CPT/HCPCS: 88300; 88302

== ENCOUNTER 2019-04-13 09:57 | Emergency (ER) | payer BC ==
[2019-04-13] MEDS ORDERED: ASPIRIN PO ONE (10:14)
--- NOTE | 2019-04-13 11:11 | XRay Report ---
CHEST 1 VIEW INDICATION: Chest Pain. COMPARISON: 08/22/2017 FINDINGS: Support devices: None. Heart: Normal. Pulmonary vasculature: Normal. Lungs/Pleura: Clear lungs. No pleural effusion. Additional findings: Bilateral surgical clips in the breasts or chest wall. IMPRESSION: 1. No acute cardiopulmonary process. Signer Name: Blaine Calderon MD Signed: 04/13/2019 11:06 AM Workstation Name: [id number]
[2019-04-13 11:13] LABS: Basophils % (Auto) 0.2 % (0.0-1.8); Eosinophils # (Auto) 0.1 K/mm3 (0.0-0.4); Eosinophils % (Auto) 1.8 % (0.0-4.3); Hematocrit 40.3 % (30.3-42.9); Hemoglobin 13.7 gm/dl (10.1-14.3); Mean Corpuscular HGB Conc 34 % (30-34); Mean Corpuscular Volume 84 fl (79-97); Monocytes # (Auto) 0.5 K/mm3 (0.0-0.8); Monocytes % (Auto) 7.9 % (0.0-7.3); Platelet Count 243 K/mm3 (140-440); Red Blood Count 4.79 M/mm3 (3.65-5.03)
[2019-04-13 11:35] LABS: BUN/Creatinine Ratio 11; Blood Urea Nitrogen 8 mg/dL (7-17); Calcium 10.2 mg/dL (8.4-10.2); Hemolysis Index 1
--- NOTE | 2019-04-13 12:23 | Emergency Department Report ---
ED General Adult HPI - General Chief complaint: Chest Pain Stated complaint: CHEST PAIN Time Seen by Provider: 04/13/19 11:09 Source: patient Mode of arrival: Ambulatory Limitations: No Limitations - History of Present Illness Initial comments: Patient presents to the emergency department with a chief complaint of chest pain that started Friday. The chest pain is substernal in nature and the patient describes it as pressure-like. The chest pain has been present continuously since its onset. Patient does take exogenous hormones and had a recent trip via plane. The chest pain is worse with inspiration and at times causes shortness of breath. There is no radiation of the chest pain. -: Sudden Location: chest Radiation: non-radiation Severity scale (0 -10): 4 Quality: other (pressure) Consistency: constant Improves with: none Worsens with: other (inspiration) Associated Symptoms: denies other symptoms Treatments Prior to Arrival: none - Related Data Home Medications Medication Instructions Recorded Confirmed Last Taken Anastrozole (Nf) [Arimidex (Nf)] 1 mg PO DAILY 11/26/17 03/08/19 03/18/18 05:30 Calcium Carbonate [Calcium] 500 mg PO DAILY 12/01/17 03/08/19 03/17/18 Cholecalciferol (Vitamin D3) 2,000 unit PO QDAY 03/08/19 03/08/19 Unknown [Vitamin D3 2,000 UNIT CAP] Previous Rx's Medication Instructions Recorded Last Taken Type Naproxen [Naprosyn] 500 mg PO BID PRN #20 tablet 04/13/19 Unknown Rx Allergies Allergy/AdvReac Type Severity Reaction Status Date / Time carboplatin Allergy Anaphylaxis Verified 05/01/18 11:22 [place] Complexes Allergy Anaphylaxis Verified 03/11/18 08:49 prochlorperazine edisylate Allergy Anaphylaxis Verified 03/11/18 08:49 [From Compazine] prochlorperazine maleate Allergy Anaphylaxis Verified 03/11/18 08:49 [From Compazine] tramadol Allergy headache Verified 03/11/18 08:49 and vomiting dernabond AdvReac Rash Uncoded 05/01/18 11:22 ED Review of Systems ROS: Stated complaint: CHEST PAIN Other details as noted in HPI Comment: All other systems reviewed and negative Constitutional: denies: chills, fever Eyes: denies: eye pain, eye discharge, vision change ENT: denies: ear pain, throat pain Respiratory: denies: cough, shortness of breath, wheezing Cardiovascular: chest pain. denies: palpitations Endocrine: no symptoms reported Gastrointestinal: denies: abdominal pain, nausea, diarrhea Genitourinary: denies: urgency, dysuria, discharge Musculoskeletal: denies: back pain, joint swelling, arthralgia Skin: denies: rash, lesions Neurological: denies: headache, weakness, paresthesias Psychiatric: denies: anxiety, depression Hematological/Lymphatic: denies: easy bleeding, easy bruising ED Past Medical Hx - Past Medical History Previous Medical History?: Yes Hx Hypertension: No Hx Liver Disease: No Hx Renal Disease: No Hx of Cancer: Yes (breast) Hx Arthritis: Yes (knees) Hx HIV: No - Surgical History Past Surgical History?: Yes Hx Breast Surgery: Yes Additional Surgical History: , Tubal ligation, hysterectomy - Social History Smoking Status: Never Smoker Substance Use Type: None - Medications Home Medications: Home Medications Medication Instructions Recorded Confirmed Last Taken Type Anastrozole (Nf) [Arimidex (Nf)] 1 mg PO DAILY 11/26/17 03/08/19 03/18/18 05:30 History Calcium Carbonate [Calcium] 500 mg PO DAILY 12/01/17 03/08/19 03/17/18 History Cholecalciferol (Vitamin D3) 2,000 unit PO QDAY 03/08/19 03/08/19 Unknown History [Vitamin D3 2,000 UNIT CAP] Naproxen [Naprosyn] 500 mg PO BID PRN #20 tablet 04/13/19 Unknown Rx ED Physical Exam - General Limitations: No Limitations General appearance: alert, in no apparent distress - Head Head exam: Present: atraumatic, normocephalic - Eye Eye exam: Present: normal appearance, PERRL, EOMI - ENT ENT exam: Present: mucous membranes moist - Neck Neck exam: Present: normal inspection - Respiratory Respiratory exam: Present: normal lung sounds bilaterally. Absent: respiratory distress - Cardiovascular Cardiovascular Exam: Present: normal rhythm, tachycardia. Absent: systolic murmur, diastolic murmur, rubs, gallop - GI/Abdominal GI/Abdominal exam: Present: soft, normal bowel sounds. Absent: distended, tende rness - Extremities Exam Extremities exam: Present: normal inspection - Back Exam Back exam: Present: normal inspection - Neurological Exam Neurological exam: Present: alert, oriented X3, CN II-XII intact. Absent: motor sensory deficit - Psychiatric Psychiatric exam: Present: normal affect, normal mood - Skin Skin exam: Present: warm, dry, intact, normal color. Absent: rash ED Course Vital Signs 04/13/19 04/13/19 04/13/19 10:12 11:26 13:14 Temperature 98.4 F 97.9 F Pulse Rate 112 H 104 H 98 H Respiratory 20 16 16 Rate Blood Pressure 139/78 Blood Pressure 126/66 123/54 [Left] O2 Sat by Pulse 99 100 100 Oximetry ED Medical Decision Making - Lab Data Result diagrams: 04/13/19 10:37 04/13/19 10:37 Lab Results 04/13/19 04/13/19 04/13/19 Range/Units 10:37 10:37 13:40 WBC 6.2 (4.5-11.0) K/mm3 RBC 4.79 (3.65-5.03) M/mm3 Hgb 13.7 (10.1-14.3) gm/dl Hct 40.3 (30.3-42.9) % MCV 84 (79-97) fl MCH 29 (28-32) pg MCHC 34 (30-34) % RDW 15.0 (13.2-15.2) % Plt Count 243 (140-440) K/mm3 Lymph % (Auto) 32.0 (13.4-35.0) % [place] % (Auto) 7.9 H (0.0-7.3) % Eos % (Auto) 1.8 (0.0-4.3) % Baso % (Auto) 0.2 (0.0-1.8) % Lymph # 2.0 (1.2-5.4) K/mm3 [place] # 0.5 (0.0-0.8) K/mm3 Eos # 0.1 (0.0-0.4) K/mm3 Baso # 0.0 (0.0-0.1) K/mm3 Seg Neutrophils % 58.1 (40.0-70.0) % Seg Neutrophils # 3.6 (1.8-7.7) K/mm3 Sodium 141 (137-145) mmol/L Potassium 3.9 (3.6-5.0) mmol/L Chloride 100.6 (98-107) mmol/L Carbon Dioxide 29 (22-30) mmol/L Anion Gap 15 mmol/L BUN 8 (7-17) mg/dL Creatinine 0.7 (0.7-1.2) mg/dL Estimated GFR > 60 ml/min BUN/Creatinine Ratio 11 % Glucose 100 (65-100) mg/dL Calcium 10.2 (8.4-10.2) mg/dL Troponin T < 0.010 < 0.010 (0.00-0.029) ng/mL - EKG Data -: EKG Interpreted by Me EKG shows normal: sinus rhythm Rate: normal - Radiology Data Radiology results: report reviewed - Medical Decision Making Discussed results with patient Critical care attestation.: If time is entered above; I have spent that time in minutes in the direct care of this critically ill patient, excluding procedure time. ED Disposition Clinical Impression: Non-cardiac chest pain, Chest pain Disposition: TO HOME OR SELFCARE Is pt being admited?: No Does the pt Need Aspirin: No Condition: Stable Instructions: Chest Pain (ED), Noncardiac Chest Pain (ED), Thoracic Pain (ED) Additional Instructions: Return if worse Referrals: OWEN MURRAY MD [Primary Care Provider] - 3-5 Days RISSA FAGAN MD [Staff Physician] - 3-5 Days SALLIE SO MD [Staff Physician] - 3-5 Days KARRIE REYES MD [Staff Physician] - 3-5 Days Time of Disposition: 14:25
[2019-04-13] MEDS ORDERED: MORPHINE ONE (13:05)
[2019-04-13] MEDS ORDERED: ZOFRAN ONE (13:05)
[2019-04-13] MEDS ORDERED: ZOFRAN IV ONE (13:13)
[2019-04-13] MEDS ORDERED: MORPHINE IV ONE (13:13)
[2019-04-13 13:14] VITALS: BP 123/54
--- NOTE | 2019-04-13 13:36 | Cat Scan Report ---
CTA CHEST WITH CONTRAST INDICATION : Right chest pain. TECHNIQUE: Axial imaging performed through the chest, with contrast bolus timing set to maximize opa cification of the pulmonary arteries. Sagittal and coronal reformatted images. 3-plane MIP reformatte d images were obtained. All CT scans at this location are performed using CT dose reduction for ALAR A by means of automated exposure control. 100 mL of intravenous contrast administered. COMPARISON: None FINDINGS: Bolus: Contrast bolus timing is adequate. PTE: No filling defect is present to suggest PTE. Mediastinum: Heart and great vessels appear normal. No pathologic mediastinal adenopathy. Lungs: Lungs are clear. Bones: Degenerative changes in the spine with nothing acute. Surgical changes are noted in both rufino sts. Upper abdomen: Limited imaging of the upper abdomen shows nothing acute. IMPRESSION: Negative for PTE. Clear lungs. Signer Name: Aroldo Guo Jr, MD Signed: 04/13/2019 1:32 PM Workstation Name: [id number]
[2019-04-13] MEDS ORDERED: ASPIRIN ONE (13:44)
== END 2019-04-13 14:53 | disposition home or self-care (01) ==
LOC: ED 09:57
DX: R07.2 Precordial pain (principal); M19.90 Unspecified osteoarthritis, unspecified site; Z85.3 Personal history of malignant neoplasm of breast; Z88.8 Allergy status to other drugs, medicaments and biological substances; Z98.51 Tubal ligation status; Z90.710 Acquired absence of both cervix and uterus; Z79.899 Other long term (current) drug therapy; Z88.5 Allergy status to narcotic agent
CPT/HCPCS: 36415; 71045; 71275; 80048; 84484; 85025; 93005; 93010; 96374; 96375; 99285; J2270; J2405; Q9967

== ENCOUNTER 2019-08-16 09:56 | Outpatient (CLI) | payer BC ==
--- NOTE | 2019-08-17 13:01 | Magnetic Resonance Report ---
BILATERAL BREAST MR WITHOUT AND WITH GADOLINIUM INDICATION: History of breast cancer status post bilateral mastectomy. COMPARISONS: 04/10/2017 TECHNIQUE: Axial 1.0 mm T1 without, axial high-resolution 2.0 mm T2 and axial 1.0 mm dynamic vibrant high-resolution postcontrast T1 fat saturation sequences on a 1.5 Zahida magnet. The examination was p erformed with an 8-channel dedicated [place] breast coil. Post-processing with CAD and subtraction was performed on an [employer] workstation. 16.0 cc of MultiHance was injected without incident for the c ontrast portion of the exam. Consent was obtained prior to the administration of the contrast. FINDINGS: RIGHT BREAST: Minimal background parenchymal enhancement. No mass or suspicious enhancement. No suspi cious lymph nodes. LEFT BREAST: Minimal background parenchymal enhancement. Benign fat necrosis in the upper outer quadr ant approximately 12 cm from the nipple. An irregular mass with trapped fat measures approximately 3. 9 x 2.2 x 1.8 cm. It demonstrates moderate enhancement with a predominant benign enhancement pattern with 91% type I persistent waveform. No other mass or suspicious enhancement. No suspicious lymph nod es. IMPRESSION: No evidence of disease recurrence or metastasis. Benign fat necrosis of the upper outer l eft breast. Recommend routine screening. BI-RADS Category 2: Benign Signer Name: Blaine Calderon MD Signed: 08/17/2019 12:57 PM Workstation Name: [id number]
== END 2019-08-16 09:57 | disposition home or self-care (01) ==
LOC: SPVIMAG 09:56
PROVIDERS: ATTEND Internal Medicine Hematology & Oncology
DX: N64.1 Fat necrosis of breast (principal); N63.20 Unspecified lump in the left breast, unspecified quadrant; C50.411 Malignant neoplasm of upper-outer quadrant of right female breast
CPT/HCPCS: A9577; C8908; 77049

== ENCOUNTER 2019-11-04 07:48 | Emergency (ER) | payer BC ==
[2019-11-04 08:09] VITALS: BP 119/77
--- NOTE | 2019-11-04 08:36 | XRay Report ---
CHEST 2 VIEWS INDICATION / CLINICAL INFORMATION: cough. COMPARISON: One view of the chest from 04/13/2019. FINDINGS: SUPPORT DEVICES: None. HEART / MEDIASTINUM: No significant abnormality. LUNGS / PLEURA: No significant pulmonary or pleural abnormality. No pneumothorax. ADDITIONAL FINDINGS: No significant additional findings. IMPRESSION: 1. No acute abnormality of the chest. Signer Name: Fox Campos MD Signed: 11/04/2019 8:32 AM Workstation Name: [id number]
[2019-11-04] MEDS ORDERED: IBUPROFEN 800 MG TAB PO ONE (09:46)
[2019-11-04] MEDS ORDERED: guaiFENesin 100 MG/5 ML ORAL LIQD PO ONE (09:46)
--- NOTE | 2019-11-04 10:04 | Emergency Department Report ---
Minor Respiratory - HPI Chief Complaint: Upper Respiratory Infection Stated Complaint: COUGH/CHEST PAIN/BODYACHES Time Seen by Provider: 11/04/19 09:45 Duration: 3 Days Pain Location: Facial Severity: mild Minor Respiratory: Yes Sore Throat, Yes Able to Tolerate Fluids, Yes Ear Pain, Yes Cough, No Rhinorrhea, No Sick Contacts, No Hemoptysis, No Chest Pain, No Shortness of Breath, No Fever Other History: This is a 39-year-old female with no prior medical history presents to ED complaining of nonproductive cough body aches and fever that bega n 2 days ago. Patient also states she been having intermittent throbbing headaches. Patient denies allergies or history of asthma. Patient denies difficulty breathing, chest pain or shortness of breath. ED Review of Systems ROS: Stated complaint: COUGH/CHEST PAIN/BODYACHES Other details as noted in HPI Comment: All other systems reviewed and negative ED Past Medical Hx - Past Medical History Hx Hypertension: No Hx Liver Disease: No Hx Renal Disease: No Hx Arthritis: Yes (knees) Hx HIV: No Additional medical history: breast cancer - Surgical History Hx Breast Surgery: Yes Additional Surgical History: , Tubal ligation, hysterectomy - Social History Smoking Status: Never Smoker - Medications Home Medications: Home Medications Medication Instructions Recorded Confirmed Last Taken Type Anastrozole (Nf) [Arimidex (Nf)] 1 mg PO DAILY 11/26/17 03/08/19 03/18/18 05:30 History Calcium Carbonate [Calcium] 500 mg PO DAILY 12/01/17 03/08/19 03/17/18 History Cholecalciferol (Vitamin D3) 2,000 unit PO QDAY 03/08/19 03/08/19 Unknown History [Vitamin D3 2,000 UNIT CAP] Naproxen [Naprosyn] 500 mg PO BID PRN #20 tablet 04/13/19 Unknown Rx Benzonatate [Tessalon Perles] 100 mg PO Q8HR #20 capsule 11/04/19 Unknown Rx Fluticasone [Flonase] 1 spray NS QDAY #1 bottle 11/04/19 Unknown Rx Ibuprofen [Motrin 800 MG tab] 800 mg PO Q8HR PRN #30 tablet 11/04/19 Unknown Rx Minor Respiratory Exam - Exam General: Vital signs noted. No distress. Alert and acting appropriately. HEENT: Yes Moist Mucous Membranes, Yes Frontal Tenderness, No Pharyngeal Erythema, No Pharyngeal Exudates, No Rhinorrhea, No Conjuctival Injection, No Maxillary Tenderness Ear: Neither TM Bulge, Neither TM Erythema, Neither EAC Pain, Neither EAC Discharge Neck: Yes Supple, No Adenopathy Lungs: Yes Good Air Exchange, No Wheezes, No [place], No Stridor, No Cough, No Labored Respirations, No Retractions, No Use of Accessory Muscles, No Other Abnormal Lung Sounds Heart: Yes Regular, No Murmur Abdomen: Yes Normal Bowel Sounds, No Tenderness, No Peritoneal Signs Skin: No Rash, No Edema Neurologic: Alert and oriented, no deficits. Musculoskeletal: Unremarkable. ED Course Vital Signs 11/04/19 08:05 Temperature 98.3 F Pulse Rate 94 H Respiratory 17 Rate Blood Pressure 119/77 O2 Sat by Pulse 100 Oximetry ED Medical Decision Making - Radiology Data Radiology results: report reviewed, image reviewed Fluoro Time In Minutes: CHEST 2 VIEWS INDICATION / CLINICAL INFORMATION: cough. COMPARISON: One view of the chest from 04/13/2019. FINDINGS: SUPPORT DEVICES: None. HEART / MEDIASTINUM: No significant abnormality. LUNGS / PLEURA: No significant pulmonary or pleural abnormality. No pneumothorax. ADDITIONAL FINDINGS: No significant additional findings. IMPRESSION: 1. No acute abnormality of the chest. Signer Name: Fox Campos MD Signed: 11/04/2019 8:32 AM Workstation Name: [id number] Transcribed By: VIVIAN Dictated By: Fox Campos MD Electronically Authenticated By: Fox Campos MD Signed Date/Time: 11/04/19 0832 - Medical Decision Making 39-year-old male presents with flulike symptoms secondary to viral syndrome. No fever during the ED stay. x-ray shows no acute findings. See report above discussed this with the patient. Discussed with patient symptomatic relief with [id number] medications. Discussed continue Tylenol and Motrin as needed for fever and pain. Discussed increase fluids and diet intake. Discussed rest much needed. Discussed daily vitamin C for immune booster. Discussed follow-up with her care physician in 3-5 days. Patient's verbally states she understands and will comply the following instructions and follow-up Vital signs stable. Patient is in no acute distress Critical care attestation.: If time is entered above; I have spent that time in minutes in the direct care of this critically ill patient, excluding procedure time. ED Disposition Clinical Impression: Upper respiratory infection, Bronchitis Disposition: DC-01 TO HOME OR SELFCARE Is pt being admited?: No Does the pt Need Aspirin: No Condition: Stable Instructions: Upper Respiratory Infection (ED), Chronic Bronchitis (ED) Additional Instructions: Make sure to follow up with the primary care physician as discussed. Take all your medications as you've been prescribed. If you have any worsening symptoms or develop new symptoms please return to ED immediately. Referrals: [facility] [Outside] - 3-5 Days [facility] [Outside] - 3-5 Days Forms: Work/School Release Form(ED) Time of Disposition: 10:16
== END 2019-11-04 10:40 | disposition home or self-care (01) ==
LOC: ED 07:48
DX: J06.9 Acute upper respiratory infection, unspecified (principal); J40 Bronchitis, not specified as acute or chronic; M19.90 Unspecified osteoarthritis, unspecified site; Z98.51 Tubal ligation status; Z90.710 Acquired absence of both cervix and uterus; Z79.1 Long term (current) use of non-steroidal anti-inflammatories (NSAID); Z79.899 Other long term (current) drug therapy; Z88.8 Allergy status to other drugs, medicaments and biological substances
CPT/HCPCS: 71046

== ENCOUNTER 2020-08-06 18:29 | Emergency (ER) | payer BC | END 2020-08-06 21:27 | disposition left against medical advice (07) | LOC: ED 18:29 | DX: R20.0 Anesthesia of skin (principal); Z53.21 Procedure and treatment not carried out due to patient leaving prior to being seen by health care provider ==